=== PATIENT | female | born 1930 | race Caucasian/White ===

== ENCOUNTER → 2016-07-29 | Outpatient (CLI) | payer MEDICARE ==
--- NOTE | 2016-07-29 15:57 | NM ---
EXAMINATION TYPE: NM bone scan whole body DATE OF EXAM: 07/29/2016 3:26 PM COMPARISON: Prior exam dated 10 June 2014 and to plain film 27 July 2016 HISTORY: Low back pain, spondylosis without myelopathy Delayed whole-body scanning was performed following the injection of 26.5 mCi Tc 99m MDP. Images acq uired 3 hours post injection. FINDINGS: Bandlike area of increased radio pharmaceutical uptake is noted within the approximate L2 level corre lating to superior endplate fracture on plain film. Uptake at the posterior aspect of L5 to the left of midline is likely degenerative. Multiple focal areas of uptake are present along anterior ribs yee aterally similar to previous exam, some interval abnormalities may be due to an interval injury along the anterior ribs. Bandlike areas of uptake are also present within the T11 C7 thoracic vertebral uche dies similar to prior exam at T7. Uptake within the ankles, feet, knees, wrists, hands, elbows, shoul ders and sternal clavicular joints is likely degenerative. Uptake in the maxilla and mandible likely due to periodontal disease. Again noted is a scoliosis. IMPRESSION: Interval compression fracture superior endplate at L2 is likely osteoporotic. Suspect T11 arthropathy and costovertebral angle on the right. Degenerative changes and interval rib trauma suspected. Addit ional findings above.
== END | disposition home or self-care (01) ==
LOC: RADNMMAIN 11:29
PROVIDERS: ATTEND Physical Medicine & Rehabilitation
DX: M48.56XA Collapsed vertebra, not elsewhere classified, lumbar region, initial encounter for fracture (principal)
CPT/HCPCS: 78306; A9503

== ENCOUNTER → 2016-09-15 | Outpatient (CLI) | payer MEDICARE ==
--- NOTE | 2016-09-15 11:25 | ECHOF ---
Referral Reason:Breast ca C50.411 Z01.818 herceptin MEASUREMENTS -------- HEIGHT: 134.6 cm WEIGHT: 29.0 kg BP: IVSd: 1.5 cm (0.6 - 1.1) LVIDd: 4.0 cm (3.9 - 5.3) LVPWd: 1.1 cm (0.6 - 1.1) IVSs: 1.1 cm LVIDs: 3.5 cm LVPWs: 1.3 cm LAESV Index (A-L): 32.54 ml/m Ao Diam: 3.3 cm (2.0 - 3.7) AV Cusp: 1.6 cm (1.5 - 2.6) LA Diam: 3.7 cm (2.7 - 3.8) MV EXCURSION: 15.315 mm (> 18.000) MV EF SLOPE: 84 mm/s (70 - 150) EPSS: 0.7 cm MV E Scott: 0.51 m/s MV DecT: 194 ms MV A Scott: 0.98 m/s MV E/A Ratio: 0.52 RAP: 5.00 mmHg RVSP: 28.15 mmHg FINDINGS -------- Sinus rhythm. This was a technically adequate study. There is mild concentric left ventricular hypertrophy. Overall left ventricular systolic function is low-normal with, an EF between 50 - 55 %. The right ventricle is normal in size. LA is moderately dilated 34-39 ml/m2 The right atrial size is normal. There is mild aortic valve sclerosis. There is no evidence of aortic regurgitation. Mild mitral annular calcification present. No mitral regurgitation. Mild tricuspid regurgitation present. There is no evidence of pulmonary hypertension. The right ventricular systolic pressure, as measured by Doppler, is 28.15mmHg. There is no pulmonic regurgitation present. The aortic root size is normal. There is no pericardial effusion. CONCLUSIONS -------- 1. There is mild concentric left ventricular hypertrophy. 2. Overall left ventricular systolic function is low-normal with, an EF between 50 - 55 %. 3. LA is moderately dilated 34-39 ml/m2 4. There is mild aortic valve sclerosis. 5. Mild mitral annular calcification present. 6. No mitral regurgitation. 7. Mild tricuspid regurgitation present. 8. There is no evidence of pulmonary hypertension. 9. The right ventricular systolic pressure, as measured by Doppler, is 28.15mmHg. MISSILE TECHNICIAN: Sapphire Wiggins RDCS
== END | disposition home or self-care (01) ==
LOC: RADECHMAIN 08:25
PROVIDERS: ATTEND Internal Medicine Hematology & Oncology
DX: C50.919 Malignant neoplasm of unspecified site of unspecified female breast (principal); I08.3 Combined rheumatic disorders of mitral, aortic and tricuspid valves
CPT/HCPCS: 93306

== ENCOUNTER → 2016-10-28 | Outpatient (CLI) | payer MEDICARE ==
--- NOTE | 2016-10-28 08:06 | CT ---
EXAMINATION TYPE: CT chest wo con DATE OF EXAM: 10/28/2016 COMPARISON: 12/10/2015 HISTORY: SOB, nodule CT DLP: 228.[address] of the chest was performed with lung and mediastinal window settings submitted. The la ck of contrast limits evaluation of the vascular, mediastinal and parenchymal structures including th e upper abdomen. LUNGS: The lungs are clear and free of infiltrate. No atelectasis. Stable calcified nodule left upper lobe image 34. Stable nodule within the lingula measuring 4 mm image 42. No new nodules seen. Parenc hymal scarring within the lingula. No pleural effusion. No CT evidence of interstitial lung disease. MEDIASTINUM/DOUGLAS: Calcified left hilar lymph nodes. Thoracic aorta is of normal caliber with limited evaluation given lack of contrast. The heart is not enlarged. No evidence for mediastinal mass. N o lymph nodes greater than 1cm. UPPER ABDOMEN: No significant abnormality is seen. OTHER: Remote right-sided rib fractures again demonstrated. Sliding type hiatal hernia redemonstrated . IMPRESSION: 1. Evidence of remote granulomatous disease. No suspicious nodules identified.
== END | disposition home or self-care (01) ==
LOC: RADCTMAIN 07:39
PROVIDERS: ATTEND Family Medicine
DX: R91.1 Solitary pulmonary nodule (principal)
CPT/HCPCS: 71250

== ENCOUNTER → 2016-11-18 | Outpatient (CLI) | payer MEDICARE ==
--- NOTE | 2016-11-18 10:18 | MM ---
Reason for exam: history of breast cancer, mastectomy. Last mammogram was performed 1 year ago. History: Patient is postmenopausal and is nulliparous. Mastectomy of the right breast, December 18, 2015. Taking other hormone. Physical Findings: Nurse did not find any significant physical abnormalities on exam. MG 3D Diag Mammo W/Cad LT CC, MLO, and CV view(s) were taken of the left breast. Prior study comparison: November 05, 2015, bilateral MG 3d diag mammo w/cad EVAN. May 20, 2010, bilateral digital screening mammogram. The breast tissue is heterogeneously dense. This may lower the sensitivity of mammography. Finding: There are typically benign round, diffuse/scattered and grouped calcifications in the left breast. There is no discrete abnormality. These results were verbally communicated with the patient and result sheet given to the patient on 11/18/16. ASSESSMENT: Benign, BI-RAD 2 RECOMMENDATION: Follow-up diagnostic mammogram of the left breast in 1 year.
== END | disposition home or self-care (01) ==
LOC: RADMAMWWP 07:36
PROVIDERS: ATTEND Surgery
DX: Z85.3 Personal history of malignant neoplasm of breast (principal); Z90.11 Acquired absence of right breast and nipple
CPT/HCPCS: G0206; G0279

== ENCOUNTER → 2017-04-13 | Outpatient (CLI) | payer MEDICARE ==
--- NOTE | 2017-04-13 14:38 | MR ---
EXAMINATION TYPE: MR brain wo/w con DATE OF EXAM: 04/13/2017 COMPARISON: There are no prior MRIs of the brain. No recent CT of the brain is available at this loca tion.. Comparison is made with 08/30/2010 CT brain HISTORY: Breast CA, BELTRÁN, DIZZY CONTRAST: Performed utilizing 7 mL intravenous Gadavist gadolinium contrast. TECHNIQUE: Multiplanar, multiecho imaging on a 3.0 Aleah magnet is performed through the brain. Stud y is performed within 24 hours of arrival to the hospital. The craniovertebral junction is normal. The pituitary is normal. Diffusion-weighted imaging is performed. No abnormal hyperintensity is present to suggest an acute i ntracranial infarct or acute ischemic change. There are scattered punctate areas of hyperintensity on T2 and Inversion Recovery weighted sequences which are non-specific but can be related to microvascular ischemic changes. This includes periventri cular white matter as well as the proximal cerebral peduncles. There are normal vascular flow voids p resent. Posterior communicating arteries are patent. Anterior communicating artery is patent. Ventricles and sulci are prominent for the patient age. No abnormal intracranial enhancement is evident post contrast. There is hyperintense signal on T2 and inversion recovery sequences in the frontal calvarium superior to the frontal sinuses. This may be enhancing and metastatic calvarial process is not excluded. CT c ould be performed for better evaluation of the osseous structures at this location. IMPRESSIONS: 1. Atrophy with chronic appearing white matter ischemic type changes.. 2. No suspicious changes to suggest intracranial metastatic disease. 3. There is hyperintense signal on T2 and inversion recovery sequences in the frontal calvarium super ior to the frontal sinuses. This may be enhancing and metastatic calvarial process is not excluded. C T could be performed for better evaluation of the osseous structures at this location.
== END | disposition home or self-care (01) ==
LOC: RADMRIMAIN 13:07
PROVIDERS: ATTEND Internal Medicine Hematology & Oncology
DX: G31.9 Degenerative disease of nervous system, unspecified (principal); I67.82 Cerebral ischemia; C50.411 Malignant neoplasm of upper-outer quadrant of right female breast; R90.82 White matter disease, unspecified
CPT/HCPCS: 70553; A9581

== ENCOUNTER → 2017-11-20 | Outpatient (CLI) | payer MEDICARE ==
--- NOTE | 2017-11-20 10:34 | MM ---
Reason for exam: additional evaluation requested from prior study. Last mammogram was performed 1 year ago. History: Patient is postmenopausal, has history of breast cancer at age 84, and is nulliparous. Mastectomy of the right breast, December 18, 2015. Took antineoplastic beginning at age 84. Taking other hormone. Physical Findings: Nurse did not find any significant physical abnormalities on exam. MG 3D Diag Mammo W/Cad LT CC, MLO, ML, ML with magnification, and CC with magnification view(s) were taken of the left breast. Prior study comparison: November 18, 2016, left breast MG 3d diag mammo w/cad LT. November 05, 2015, bilateral MG 3d diag mammo w/cad EVAN. The breast tissue is heterogeneously dense. This may lower the sensitivity of mammography. Finding: There are changing grouped/clustered calcifications in the 6 o'clock middle position of the left breast 7cm from the nipple. New finding since November 18, 2016. These results were verbally communicated with the patient and result sheet given to the patient on 11/20/17. ASSESSMENT: Suspicious, BI-RAD 4 RECOMMENDATION: Stereotactic core biopsy of the left breast. Called Dr. Mcconnell with mammographic findings and has scheduled an appointment for the patient for 11/23/17 at 8:[address] Ferrera. PRELIMINARY REPORT CALLED AND FAXED TO DR. FERRERA ON 11/20/17.
== END | disposition home or self-care (01) ==
LOC: RADMAMWWP 09:03
PROVIDERS: ATTEND Internal Medicine Hematology & Oncology
DX: Z08 Encounter for follow-up examination after completed treatment for malignant neoplasm (principal); Z85.3 Personal history of malignant neoplasm of breast
CPT/HCPCS: 77065; G0279; 77061

== ENCOUNTER → 2017-12-22 | Day surgery (SDC) | payer MEDICARE ==
[2017-12-22 07:21] VITALS: RESP 16; BMI 27.4
[2017-12-22 08:44] VITALS: BP 152/84; PULSE 74; TEMP 98.8
--- NOTE | 2017-12-22 09:53 | MM ---
EXAMINATION TYPE: MG stereo VAD BX LT DATE OF EXAM: 12/22/2017 COMPARISON: Exams dating back to 11/18/2016 CLINICAL HISTORY: Left breast calcifications that are indeterminate and for which stereotactic guided biopsy was recommended. TECHNIQUE: Stereotactic guided core biopsy of left breast. FINDINGS: The procedure of stereotactic guided core biopsy was explained to the patient. Benefits, alternatives, and risks were discussed. An informed consent was then obtained. Preprocedural timeout was performed. The shortness pathway for biopsy was chosen. Shortness pathway was craniocaudal from below approach. 10 cc of lidocaine without epinephrine was utilized to anesthetize the skin surface and subcutaneous soft tissues. The needle was advanced to the appropriate depth and prefire images were obtained demonstrating appropriate localization of a 3 mm group of calcifications in the lower inner quadrant of the left breast. 10 cc's of lidocaine with epinephrine was utilized to anesthetize the subcutaneous tissues at the site of biopsy after postfire. A vacuum assisted biopsy gun was then used to obtain 9 core samples. The patient tolerated the procedure well without any immediate complication. The patient was kept in the radiology department for short stay after the procedure and then discharged home in stable condition. Targeted calcifications are identified in specimen mammogram. Post biopsy mammogram shows the clip to appear in satisfactory position relative to the targeted area of concern on the preprocedure images. IMPRESSION: SUCCESSFUL, UNCOMPLICATED STEREOTACTIC GUIDED CORE BIOPSY OF A 3 MM GROUP OF CALCIFICATIONS IN THE LOWER INNER QUADRANT OF THE LEFT BREAST, FULL PATHOLOGY RESULTS TO FOLLOW. Low index of suspicion at the time of biopsy (BI-RADS 4A). Pathology Results: Benign CORE BIOPSY, LEFT BREAST: Fibroadenoma demonstrating dystropic calcification. Recommendation Follow up mammogram of the left breast in 6 months. ANNE
== END ==
LOC: RADMAMWWP 06:55
PROVIDERS: ATTEND Surgery
DX: R92.1 Mammographic calcification found on diagnostic imaging of breast (principal); R92.8 Other abnormal and inconclusive findings on diagnostic imaging of breast
CPT/HCPCS: 88305; 19081; A4648; J2001

== ENCOUNTER → 2018-04-30 | Outpatient (CLI) | payer MEDICARE ==
--- NOTE | 2018-05-01 13:36 | BD ---
EXAMINATION TYPE: Axial Bone Density DATE OF EXAM: 04/30/2018 COMPARISON: 02.02.2016 CLINICAL HISTORY: 87 YR OLD FEMALE.....ICD-10 CODE: M85.8 OSTEOPENIA, C50.411 BREAST CANCER Height: 62.8 Weight: 166 FRAX RISK QUESTIONS: History of Fracture in Adulthood: YES, MANY RISK FACTORS HISTORY OF: HX OF RT SHOULDER, ANKLE FRACTURE >50 YRS OLD, RIBS, WRIST, FEET History of Wrist Fracture: RT WRIST AND ELBOW > 52 YRS OLD, HX OF LT WRIST FX IN 1969 Surgery to Spine LOW BACK, LAMINECTOMY, 1985 Family History of Osteoporosis: YES, HER MOTHER Postmenopausal woman: YES AT ABOUT 52 YRS OLD Lost more than 2 inches in height since high school: YES Frequent falls: ELDERLY, MANY FRACTURES MEDICATIONS: Prednisone or other steroids: INHALERS FOR ASTHMA, CLAIRTIN, How Long: ON AND OFF FOR YRS Osteoporosis Medications: FOSAMAX, IN PAST..STOPPED 1 YR AGO Additional Medications: ROCEPHIN FOR BREAST CA , CALCIUM WITH D, BP MEDS, METFORMIN, STATIN FOR CHO LESTEROL, Additional History: HX OF BREAST CANCER, RT BREAST, HYPERTENSION, DIABETIC, EXAM MEASUREMENTS: Bone mineral densitometry was performed using the [employer] System. SPINE NOT SCANNED.......LAMINECTOMY LUMBAR SPINE Bone mineral density about the R hip (g/cm2): 0.832 Bone mineral density about the L hip (g/cm2): 0.831 T Score values are as follows: -----R Neck: -0.9 -----L Neck: -1.6 -----R Total: -1.4 -----L Total: -1.4 Bone mineral density has: Increased 2.2% since study of: 02.02.2016 FOREARM NOT SCANNED.....HX OF FRACTURES TO BOTH WRISTS FRAX%s: THERE IS A 19.5% CHANCE FOR A MAJOR OSTEOPOROTIC FX AND A 4.8% FOR HIP FX....PROBABILITY O F FX IN 10 YRS TIME IMPRESSION: Osteopenia (T Score between -2.5 and -1). There is slightly increased risk of fracture and the patient may be considered for treatment. Re-Screen 2-5 years. NOTE: T-SCORE=SD OF THE YOUNG ADULT MEAN.
== END | disposition home or self-care (01) ==
LOC: RADBDWWP 16:07
PROVIDERS: ATTEND Internal Medicine Hematology & Oncology
DX: C50.911 Malignant neoplasm of unspecified site of right female breast (principal); M85.80 Other specified disorders of bone density and structure, unspecified site
CPT/HCPCS: 77080

== ENCOUNTER → 2018-05-31 | Outpatient (CLI) | payer MEDICARE ==
--- NOTE | 2018-05-31 09:51 | MM ---
Reason for exam: follow-up at short interval from prior study. Last mammogram was performed 6 months ago. History: Patient is postmenopausal, has history of breast cancer at age 84, and is nulliparous. Benign MG stereo VAD BX LT of the left breast, December 22, 2017. Mastectomy of the right breast, December 18, 2015. Took antineoplastic beginning at age 84. Taking other hormone. Physical Findings: Nurse did not find any significant physical abnormalities on exam. MG 3D Diag Mammo W/Cad LT CC, MLO, and ML view(s) were taken of the left breast. Prior study comparison: November 20, 2017, left breast MG 3d diag mammo w/cad LT. November 18, 2016, left breast MG 3d diag mammo w/cad LT. The breast tissue is heterogeneously dense. This may lower the sensitivity of mammography. Benign calcifications in the left breast. Left biopsy marker noted. These results were verbally communicated with the patient and result sheet given to the patient on 05/31/18. ASSESSMENT: Benign, BI-RAD 2 RECOMMENDATION: Routine screening mammogram of the left breast in 6 months. Back on schedule for November 2018.
== END | disposition home or self-care (01) ==
LOC: RADMAMWWP 08:45
PROVIDERS: ATTEND Internal Medicine Hematology & Oncology
DX: Z08 Encounter for follow-up examination after completed treatment for malignant neoplasm (principal); Z85.3 Personal history of malignant neoplasm of breast
CPT/HCPCS: 77065; G0279; 77061

== ENCOUNTER → 2019-01-30 | Outpatient (CLI) | payer MEDICARE ==
[2019-01-30 12:19] LABS: Anion Gap 8.3 mmol/L (4.00-12.00); Carbon Dioxide 27.7 mmol/L (21.6-31.8); Potassium 4.2 mmol/L (3.5-5.5)
== END | disposition home or self-care (01) ==
LOC: LABWHC1 06:33
PROVIDERS: ATTEND Otolaryngology
DX: Z01.818 Encounter for other preprocedural examination (principal); Z01.812 Encounter for preprocedural laboratory examination; I10 Essential (primary) hypertension; E11.9 Type 2 diabetes mellitus without complications
CPT/HCPCS: 36415; 80051; 93005

== ENCOUNTER → 2019-05-20 | Outpatient (CLI) | payer MEDICARE ==
[2019-05-20 08:55] LABS: Basophils % (A) 1 %; Eosinophils # (A) 0.3 k/uL (0-0.7); Eosinophils % (A) 6 %; HCT 46.1 % (34.0-46.0); HGB 15.2 gm/dL (11.4-16.0); Lymphocytes # (A) 1.7 k/uL (1.0-4.8); Lymphocytes % (A) 30 %; MCH 31.1 pg (25.0-35.0); MCV 94.1 fL (80.0-100.0); Mean Platelet Volume 7.2; Monocytes # (A) 0.3 k/uL (0-1.0); Monocytes % (A) 5 %; Neutrophils # (A) 3.1 k/uL (1.3-7.7); Neutrophils % (A) 56 %; Platelet Count 250 k/uL (150-450); RDW 12.7 % (11.5-15.5); WBC 5.5 k/uL (3.8-10.6)
== END | disposition home or self-care (01) ==
LOC: LABWHC1 07:45
PROVIDERS: ATTEND Otolaryngology
DX: R53.83 Other fatigue (principal); R43.0 Anosmia
CPT/HCPCS: 36415; 82607; 84443; 85025; 86780

== ENCOUNTER → 2019-06-03 | Outpatient (CLI) | payer MEDICARE ==
--- NOTE | 2019-06-03 08:32 | MM ---
Reason for exam: additional evaluation requested from prior study. Last mammogram was performed 1 year ago. History: Patient is postmenopausal, has history of breast cancer at age 84, and is nulliparous. Benign MG stereo VAD BX LT of the left breast, December 22, 2017. Mastectomy of the right breast, December 18, 2015. Took antineoplastic beginning at age 84. Taking other hormone. Physical Findings: Nurse did not find any significant physical abnormalities on exam. MG 3D Diag Mammo W/Cad LT CC and MLO view(s) were taken of the left breast. Prior study comparison: May 31, 2018, left breast MG 3d diag mammo w/cad LT. November 20, 2017, left breast MG 3d diag mammo w/cad LT. The breast tissue is heterogeneously dense. This may lower the sensitivity of mammography. Benign appearing calcifications in the left breast. No suspicious abnormality. These results were verbally communicated with the patient and result sheet given to the patient on 06/03/19. ASSESSMENT: Benign, BI-RAD 2 RECOMMENDATION: Follow-up diagnostic mammogram of the left breast in 1 year.
== END | disposition home or self-care (01) ==
LOC: RADMAMWWP 07:30
PROVIDERS: ATTEND Internal Medicine Hematology & Oncology
DX: Z08 Encounter for follow-up examination after completed treatment for malignant neoplasm (principal); Z85.3 Personal history of malignant neoplasm of breast
CPT/HCPCS: 77065; G0279; 77061

== ENCOUNTER → 2019-07-09 | Outpatient (CLI) | payer MEDICARE ==
[2019-07-09 18:15] LABS: Dermato. farinae IgE <0.10 kU/L
[2019-07-09 18:16] LABS: Cat Epith & Dander IgE 0.15 kU/L; Cladosporian herbarum IgE <0.10 kU/L; Cockroach IgE <0.10 kU/L; Dog Dander IgE <0.10 kU/L
[2019-07-09 18:17] LABS: Alternaria alternata IgE <0.10 kU/L; Aspergillus fumagatus IgE <0.10 kU/L; Birch IgE <0.10 kU/L; Elm IgE <0.10 kU/L; Maple (Box Elder) IgE <0.10 kU/L; Oak IgE <0.10 kU/L; Ragweed,Common IgE <0.10 kU/L
[2019-07-09 18:18] LABS: Red Top (Bentgrass) IgE <0.10 kU/L
== END | disposition home or self-care (01) ==
LOC: LABWHC1 08:52
PROVIDERS: ATTEND Internal Medicine Critical Care Medicine
DX: T78.40XA Allergy, unspecified, initial encounter (principal)
CPT/HCPCS: 36415; 82785; 86003

== ENCOUNTER → 2019-08-22 | Outpatient (CLI) | payer MEDICARE ==
--- NOTE | 2019-08-22 09:18 | CT ---
EXAMINATION TYPE: CT brain w con DATE OF EXAM: 08/22/2019 COMPARISON: 08/30/2010 INDICATION: dizziness, history of breast CA DLP: 822.6 mGycm, Automated exposure control for dose reduction was used. CONTRAST: None CT of the brain is performed utilizing 3 mm thick sections through the posterior fossa and 3 mm thick sections through the remaining calvarium. Study is performed within 24 hours of arrival to the hosp [facility]. No abnormal hyperdensity is present to suggest an acute intracranial hemorrhage. No mass lesion is evident. No areas of abnormal enhancement are evident. No acute infarcts are evident. There is some periventricular hypodensity, likely on the basis of chief operator synthesis janette white matter ischemic change. Suspicious vasogenic edema is not identified. Ventricles and sulci are minimally prominent for the patient age. Paranasal sinuses and mastoid air cells within the [id number] are clear. Calvarium appears intact. There is some mild hyperostosis frontalis internus, normal variant. IMPRESSIONS: 1. No suspicious changes to suggest metastatic disease. 2. Mild atrophy with periventricular white matter chronic appearing ischemic type changes. 3. MRI with contrast could be performed if additional workup more subtle metastatic disease would be of benefit.
--- NOTE | 2019-08-22 12:57 | NM ---
EXAMINATION TYPE: NM bone scan whole body DATE OF EXAM: 08/22/2019 COMPARISON: Nuclear medicine whole body scan July 29, 2016. HISTORY: Breast cancer. Delayed whole-body scanning was performed following the injection of 23 mCi Tc 99m MDP. Images acqui red 3 hours post injection. FINDINGS: Underlying scoliosis redemonstrated. Areas of increased radiotracer uptake throughout the thoracic an d lumbar spine redemonstrated less prominent from prior study. Areas of involvement and bilateral RIB S are less conspicuous. No new areas of abnormal radiotracer uptake. Degenerative change of both shou lders and knees again seen. IMPRESSION: Diminished radiotracer uptake overall consistent with positive response to treatment. 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 No distinct new lesions are seen.
== END | disposition home or self-care (01) ==
LOC: RADCTMAIN 07:59
PROVIDERS: ATTEND Psychiatry & Neurology Neurology
DX: G31.9 Degenerative disease of nervous system, unspecified (principal); I67.82 Cerebral ischemia; C79.51 Secondary malignant neoplasm of bone; Z85.3 Personal history of malignant neoplasm of breast
CPT/HCPCS: 82565; 84520; 70460; 78306; 36415; A9503; Q9967

== ENCOUNTER 2019-12-01 15:43 | Emergency (ER) | payer MEDICARE ==
[2019-12-01 15:47] VITALS: TEMP 98.1
[2019-12-01] MEDS ORDERED: HYDROmorphone 0.5 MG/0.5 ML SYRINGE IVP STA (16:19)
--- NOTE | 2019-12-01 16:33 | ED ---
Abdominal Pain HPI - General Chief Complaint: Abdominal Pain Stated Complaint: Abdominal Pain Time Seen by Provider: 12/01/19 15:45 Source: patient, family Mode of arrival: ambulatory - History of Present Illness Initial Comments: Patient is an 89-year-old female with past medical history of diabetes, hypertension, hyperlipidemia presents to emergency room with reported abdominal pain. Patient states that she hurt her back 3 weeks ago and she was placed on [place] as by her primary care physician. States that since she's been taking the medication she's been constipated. Last bowel movement was Monday. She is not taking medications at home for symptoms. Denies urinary retention. No bowel or bladder incontinence. Denies melenic, black tarry or sticky stools. Denies dysuria, hematuria or voiding. Continues to pass gas. No fevers or chills. No nausea or vomiting. Back pain is reproducible upon movement. No saddle anesthesia or bowel or bladder incontinence. No fevers or chills. No other alleviating, precipitating or modifying factors - Related Data Home Medications Medication Instructions Recorded Confirmed Aspirin 1 each PO DAILY 11/24/17 12/22/17 Atorvastatin [Lipitor] 10 mg PO DAILY 11/24/17 12/22/17 Calcium Citrate 1 each PO DAILY 11/24/17 12/22/17 Glucosamine/Chondr Minaya A Sod [Osteo 1 each PO DAILY 11/24/17 12/22/17 Bi-Flex Caplet] Hydrochlorothiazide [Hydrodiuril] 25 mg PO DAILY 11/24/17 12/22/17 metFORMIN HCL [Glucophage] 1 each PO DAILY 11/24/17 12/22/17 Previous Rx's Medication Instructions Recorded Docusate [Colace] 100 mg PO DAILY #30 capsule 12/01/19 Polyethylene Glycol 3350 [Miralax] 17 gm PO DAILY #527 gm 12/01/19 Allergies Allergy/AdvReac Type Severity Reaction Status Date / Time No Known Allergies Allergy Verified 12/01/19 15:47 Review of Systems ROS Statement: Those systems with pertinent positive or pertinent negative responses have been documented in the HPI. ROS Other: All systems not noted in ROS Statement are negative. Past Medical History Past Medical History: Cancer, Diabetes Mellitus, Hyperlipidemia, Hypertension History of Any Multi-Drug Resistant Organisms: None Reported Past Surgical History: Back Surgery, Breast Surgery Additional Past Surgical History / Comment(s): right breast mastectomy 2016 back surgery 30 years ago Past Anesthesia/Blood Transfusion Reactions: No Reported Reaction Past Psychological History: Anxiety Smoking Status: Former smoker Past Alcohol Use History: None Reported Past Drug Use History: None Reported - Past Family History Sister(s) Family Medical History: Chest Pain / Angina, Eye Disorder Father Family Medical History: Cancer Course Vital Signs 12/01/19 15:44 Temperature 98.1 F Pulse Rate 90 Respiratory 18 Rate Blood Pressure 147/83 O2 Sat by Pulse 97 Oximetry Medical Decision Making - Medical Decision Making Upon arrival the patient is placed into room 16. A thorough history and physical exam was performed. Peripheral IV was established. The patient was given 0.5 mg of Dilaudid for her back pain as she does have inability to move around without significant discomfort. Laboratory studies were conducted. Urinalysis is remarkable for small leukocyte esterase with rare bacteria. Patient has no symptoms of urinary tract infection at this time and therefore I will not treat the asymptomatic bacteria. CT of the patient's abdomen and pelvis demonstrates a moderate stool burden. Moderate sigmoid diverticulosis without diverticulitis. Numerous gallstones. No dilated ducts. Small hiatal hernia. Mild subsegmental atelectasis at the bases. CT of the patient's lumbar spine demonstrates compression fractures of L1 and L2. L2 compression fracture is unchanged. L1 fracture appears new. Patient has no signs of saddle anesthesia. I did discuss the diagnosis, differential treatment options. Patient does request to have a bowel movement at home. She is given mag citrate. She is instructed to drink half the bottle if she does not have a bowel movement within 4 hours to drink the other half. I do recommend that she take MiraLAX and Colace daily while taking the pain medication for her back. I do believe she will benefit from other treatment options to include epidural injections therefore to give her follow-up to Dr. Dupree's office. If the patient does not have a bowel movement or she may return to the emergency room. Patient was in agreement treatment plan she was discharged home ambulatory in stable condition - Lab Data Result diagrams: 12/01/19 16:24 12/01/19 16:24 Lab Results 12/01/19 12/01/19 12/01/19 Range/Units 16:24 16:24 16:24 WBC 6.4 (3.8-10.6) k/uL RBC 5.17 (3.80-5.40) m/uL Hgb 15.4 (11.4-16.0) gm/dL Hct 47.2 H (34.0-46.0) % MCV 91.3 (80.0-100.0) fL MCH 29.7 (25.0-35.0) pg MCHC 32.5 (31.0-37.0) g/dL RDW 12.7 (11.5-15.5) % Plt Count 276 (150-450) k/uL Neutrophils % 65 % Lymphocytes % 20 % Monocytes % 6 % Eosinophils % 6 % Basophils % 1 % Neutrophils # 4.2 (1.3-7.7) k/uL Lymphocytes # 1.3 (1.0-4.8) k/uL Monocytes # 0.4 (0-1.0) k/uL Eosinophils # 0.4 (0-0.7) k/uL Basophils # 0.1 (0-0.2) k/uL Sodium 137 (137-145) mmol/L Potassium 3.6 (3.5-5.1) mmol/L Chloride 99 (98-107) mmol/L Carbon Dioxide 28 (22-30) mmol/L Anion Gap 10 mmol/L BUN 18 H (7-17) mg/dL Creatinine 0.89 (0.52-1.04) mg/dL Est GFR (CKD-EPI)AfAm 67 (>60 ml/min/1.73 sqM) Est GFR (CKD-EPI)NonAf 59 (>60 ml/min/1.73 sqM) Glucose 136 H (74-99) mg/dL Plasma Lactic Acid Michael 1.3 (0.7-2.0) mmol/L Calcium 10.2 (8.4-10.2) mg/dL Total Bilirubin 1.1 (0.2-1.3) mg/dL AST 21 (14-36) U/L ALT 12 (4-34) U/L Alkaline Phosphatase 123 (38-126) U/L Total Protein 7.4 (6.3-8.2) g/dL Albumin 4.5 (3.5-5.0) g/dL Lipase 223 (23-300) U/L Urine Color Urine Appearance (Clear) Urine pH (5.0-8.0) Ur Specific [place] (1.001-1.035) Urine Protein (Negative) Urine Glucose (UA) (Negative) Urine Ketones (Negative) Urine Blood (Negative) Urine Nitrite (Negative) Urine Bilirubin (Negative) Urine Urobilinogen (<2.0) mg/dL Ur Leukocyte Esterase (Negative) Urine RBC (0-5) /hpf Urine WBC (0-5) /hpf Ur Squamous Epith Cells (0-4) /hpf Urine Bacteria (None) /hpf Hyaline Casts (0-2) /lpf Urine Mucus (None) /hpf 12/01/19 Range/Units 16:53 WBC (3.8-10.6) k/uL RBC (3.80-5.40) m/uL Hgb (11.4-16.0) gm/dL Hct (34.0-46.0) % MCV (80.0-100.0) fL MCH (25.0-35.0) pg MCHC (31.0-37.0) g/dL RDW (11.5-15.5) % Plt Count (150-450) k/uL Neutrophils % % Lymphocytes % % Monocytes % % Eosinophils % % Basophils % % Neutrophils # (1.3-7.7) k/uL Lymphocytes # (1.0-4.8) k/uL Monocytes # (0-1.0) k/uL Eosinophils # (0-0.7) k/uL Basophils # (0-0.2) k/uL Sodium (137-145) mmol/L Potassium (3.5-5.1) mmol/L Chloride (98-107) mmol/L Carbon Dioxide (22-30) mmol/L Anion Gap mmol/L BUN (7-17) mg/dL Creatinine (0.52-1.04) mg/dL Est GFR (CKD-EPI)AfAm (>60 ml/min/1.73 sqM) Est GFR (CKD-EPI)NonAf (>60 ml/min/1.73 sqM) Glucose (74-99) mg/dL Plasma Lactic Acid Michael (0.7-2.0) mmol/L Calcium (8.4-10.2) mg/dL Total Bilirubin (0.2-1.3) mg/dL AST (14-36) U/L ALT (4-34) U/L Alkaline Phosphatase (38-126) U/L Total Protein (6.3-8.2) g/dL Albumin (3.5-5.0) g/dL Lipase (23-300) U/L Urine Color Yellow Urine Appearance Clear (Clear) Urine pH 8.5 H (5.0-8.0) Ur Specific [place] 1.045 H (1.001-1.035) Urine Protein Negative (Negative) Urine Glucose (UA) Negative (Negative) Urine Ketones Negative (Negative) Urine Blood Negative (Negative) Urine Nitrite Negative (Negative) Urine Bilirubin Negative (Negative) Urine Urobilinogen <2.0 (<2.0) mg/dL Ur Leukocyte Esterase Small H (Negative) Urine RBC 1 (0-5) /hpf Urine WBC 3 (0-5) /hpf Ur Squamous Epith Cells 3 (0-4) /hpf Urine Bacteria Rare H (None) /hpf Hyaline Casts 1 (0-2) /lpf Urine Mucus Rare H (None) /hpf Disposition Clinical Impression: Constipation, Back pain, Compression fracture, Abdominal pain Disposition: HOME SELF-CARE Condition: Stable Instructions (If sedation given, give patient instructions): Constipation (ED), Vertebral Compression Fracture (ED) Additional Instructions: Please drank half the bottle of mag citrate. If after 4 hours you do not have a bowel movement, drink the other half. Take the stool softener daily. Return to the emergency room for any new or worsening symptoms Prescriptions: Docusate [Colace] 100 mg PO DAILY #30 capsule Polyethylene Glycol 3350 [Miralax] 17 gm PO DAILY #527 gm Is patient prescribed a controlled substance at d/c from ED?: No Referrals: Marvin Parikh DO [Primary Care Provider] - 1-2 days Catherine Montgomery DO [Doctor of Osteopathic Medicine] - 1-2 days Time of Disposition: 18:14
[2019-12-01 16:37] LABS: Basophils # (A) 0.1 k/uL (0-0.2); Basophils % (A) 1 %; Eosinophils # (A) 0.4 k/uL (0-0.7); Eosinophils % (A) 6 %; HCT 47.2 % (34.0-46.0); HGB 15.4 gm/dL (11.4-16.0); Lymphocytes # (A) 1.3 k/uL (1.0-4.8); Lymphocytes % (A) 20 %; MCH 29.7 pg (25.0-35.0); MCHC 32.5 g/dL (31.0-37.0); MCV 91.3 fL (80.0-100.0); Mean Platelet Volume 6.8; Monocytes # (A) 0.4 k/uL (0-1.0); Monocytes % (A) 6 %; Neutrophils # (A) 4.2 k/uL (1.3-7.7); Neutrophils % (A) 65 %; Platelet Count 276 k/uL (150-450); RBC 5.17 m/uL (3.80-5.40); RDW 12.7 % (11.5-15.5); WBC 6.4 k/uL (3.8-10.6)
[2019-12-01 16:47] LABS: Albumin 4.5 g/dL (3.5-5.0); Calcium 10.2 mg/dL (8.4-10.2); Potassium 3.6 mmol/L (3.5-5.1); Total Bilirubin 1.1 mg/dL (0.2-1.3); Total Protein 7.4 g/dL (6.3-8.2)
--- NOTE | 2019-12-01 17:25 | CT ---
EXAMINATION TYPE: CT abdomen pelvis w con DATE OF EXAM: 12/01/2019 COMPARISON: None HISTORY: Abdominal pain, back pain and constipation. CT DLP: 1638.7 mGycm Automated exposure control for dose reduction was used. CONTRAST: Performed with IV Contrast, patient injected with 80ml mL of Isovue 300. Images were obtained from the diaphragm to the floor the pelvis with IV contrast. There is mild subsegmental atelectasis at the lung bases. There is no pleural effusion. Heart size is normal. There is no pericardial effusion. There is small hiatal hernia. Stomach has normal size. Jessy er spleen pancreas appear normal. Bile ducts are not dilated. There are multiple cholesterol gallston es. There is no adrenal mass. Kidneys show satisfactory contrast opacification. There is no hydronephrosi s. Delayed images show normal renal excretion. Ureters are not dilated. There is no retroperitoneal a denopathy. Bladder distends smoothly. There is no inguinal hernia. There are multiple sigmoid diverti cula. There is no evidence of diverticulitis. There is small umbilical hernia that contains fat. There is no mesenteric edema. There is no ascites or free air. There is no bowel obstruction. The nikki endix appears normal. There are diverticuli in the descending colon. There is 50% compression deformity of L2 and L1 vertebral bodies that appears old. There is osteopeni a. The bony pelvis appears intact. I see no bony destructive process. IMPRESSION: Moderate sigmoid diverticulosis without diverticulitis. No evidence of appendicitis. Numerous gallstones. No dilated ducts. Small hiatal hernia. Mild subsegmental atelectasis at the lung bases.
--- NOTE | 2019-12-01 17:31 | CT ---
EXAMINATION TYPE: CT lumbar spine w con DATE OF EXAM: 12/01/2019 COMPARISON: None HISTORY: Abdominal pain, back pain and constipation. CT DLP: 1638.7 mGycm Automated exposure control for dose reduction was used. CONTRAST: Performed with IV Contrast, patient injected with 80ml mL of Isovue 300. Images were obtained from the level of T11 to assess to vertebra without contrast. There is depression of the superior endplates of L1-L2. There is some biconcave deformity. There is l oss of height is 50%. There is no significant disc space narrowing. Lumbar vertebra have normal align ment. The posterior elements are intact. There is osteopenia. There is no evidence of lumbar paraspinal mas s. The sacroiliac joints appear intact. There is a mild relative spinal stenosis at L1 to due to some mild posterior endplate displacement into the spinal canal at the compression fracture site. Canal i s narrowed approximately 50%. 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 Mild relative spina l stenosis at L1-2. The L2 compression fracture unchanged compared to chest CT scan 10-28-16. The L1 fr acture is new compared to old exam.
[2019-12-01 17:53] LABS: Appearance,Urine Clear (Clear); Bacteria,Urine Rare /hpf; Bilirubin,Urine Negative (Negative); Blood,Urine Negative (Negative); Color,Urine Yellow; Glucose,Urine (UA) Negative (Negative); Hyaline Casts,Urine 1 /lpf (0-2); Ketones,Urine Negative (Negative); Leukocyte Esterase,Urine Small (Negative); Mucus,Urine Rare /hpf; Nitrite,Urine Negative (Negative); PH, Urine 8.5 (5.0-8.0); Protein,Urine Negative (Negative); RBC,Urine 1 /hpf (0-5); Specific Gravity,Urine 1.045 (1.001-1.035); Squamous Epithelial Cell,Urine 3 /hpf (0-4); Urobilinogen,Urine <2.0 mg/dL (<2.0); WBC,Urine 3 /hpf (0-5)
[2019-12-01] MEDS ORDERED: MAGNESIUM CITRATE 296 ML BOTTLE PO ONE (18:09)
[2019-12-01] MEDS ORDERED: KETOROLAC 30 MG/ML 1 ML VIAL IVP STA (18:11)
[2019-12-01 18:37] VITALS: RESP 20
[2019-12-01 18:38] VITALS: BP 161/84; PULSE 76
== END 2019-12-01 18:39 | disposition home or self-care (01) ==
LOC: EC 15:43
DX: K59.00 Constipation, unspecified (principal); S32.018A Other fracture of first lumbar vertebra, initial encounter for closed fracture; S32.028A Other fracture of second lumbar vertebra, initial encounter for closed fracture; K57.10 Diverticulosis of small intestine without perforation or abscess without bleeding; K80.20 Calculus of gallbladder without cholecystitis without obstruction; K44.9 Diaphragmatic hernia without obstruction or gangrene; E78.5 Hyperlipidemia, unspecified; E11.9 Type 2 diabetes mellitus without complications; I10 Essential (primary) hypertension; Z79.84 Long term (current) use of oral hypoglycemic drugs; Z79.899 Other long term (current) drug therapy; Z85.3 Personal history of malignant neoplasm of breast; Z90.11 Acquired absence of right breast and nipple; Z87.891 Personal history of nicotine dependence; Z80.9 Family history of malignant neoplasm, unspecified
CPT/HCPCS: 36415; 80053; 83605; 83690; 85025; 81001; 72132; 74177; 99284; 96374; 96375; J1885; J1170; Q9967

== ENCOUNTER → 2020-07-31 | Outpatient (CLI) | payer MEDICARE ==
--- NOTE | 2020-08-03 10:07 | MM ---
Reason for exam: additional evaluation requested from prior study. Last mammogram was performed 1 year and 2 months ago. History: Patient is postmenopausal, has history of breast cancer at age 84, and is nulliparous. Benign MG stereo VAD BX LT of the left breast, December 22, 2017. Mastectomy of the right breast, December 18, 2015. Took antineoplastic beginning at age 84. Taking other hormone. Physical Findings: Nurse did not find any significant physical abnormalities on exam. MG 3D Diag Mammo W/Cad LT CC, MLO, LM, and spot compression MLO view(s) were taken of the left breast. Prior study comparison: June 03, 2019, left breast MG 3d diag mammo w/cad LT. May 31, 2018, left breast MG 3d diag mammo w/cad LT. The breast tissue is heterogeneously dense. This may lower the sensitivity of mammography. Previous mammotome biopsy in the left breast. Focal asymmetry left subareolar, changing from prior, compresses normally. No significant new findings when compared with previous films. These results were verbally communicated with the patient and result sheet given to the patient on 07/31/20. ASSESSMENT: Benign, BI-RAD 2 RECOMMENDATION: Routine screening mammogram of the left breast in 1 year.
== END ==
LOC: RADMAMWWP 14:07
PROVIDERS: ATTEND Family Medicine
DX: R92.2 Inconclusive mammogram (principal); Z85.3 Personal history of malignant neoplasm of breast; Z78.0 Asymptomatic menopausal state
CPT/HCPCS: 77065; G0279; 77061

== ENCOUNTER 2020-09-24 18:25 | Observation (INO) | payer MEDICARE ==
[2020-09-24] MEDS ORDERED: IPRATROPIUM-ALBUTEROL 3 ML NEB INHALATION STA (19:05)
[2020-09-24] MEDS ORDERED: methylPREDNISolone SOD SUCCI 125 MG/2 ML VIAL IV STA (19:05)
--- NOTE | 2020-09-24 19:10 | ED ---
General Adult HPI - General Chief complaint: Shortness of Breath Stated complaint: asthma attack Time Seen by Provider: 09/24/20 18:40 Source: patient, RN notes reviewed Mode of arrival: ambulatory Limitations: no limitations - History of Present Illness Initial comments: Patient is a pleasant 89-year-old female presenting to the emergency Department with complaints of shortness of breath. Onset of symptoms was yesterday. Patient does have history of similar symptoms previously associated with asthma. Patient has been coughing. Patient does have sputum however has not looked at the color. No fevers. No chest pain. Patient was tested for coronavirus at [facility] her to arrival with negative results. Patient does have paperwork. No calf pain. No leg swelling. - Related Data Home Medications Medication Instructions Recorded Confirmed Aspirin 1 each PO DAILY 11/24/17 12/22/17 Atorvastatin [Lipitor] 10 mg PO DAILY 11/24/17 12/22/17 Calcium Citrate 1 each PO DAILY 11/24/17 12/22/17 Glucosamine/Chondr Minaya A Sod [Osteo 1 each PO DAILY 11/24/17 12/22/17 Bi-Flex Caplet] hydroCHLOROthiazide [Hydrodiuril] 25 mg PO DAILY 11/24/17 12/22/17 metFORMIN HCL [Glucophage] 1 each PO DAILY 11/24/17 12/22/17 Previous Rx's Medication Instructions Recorded Docusate [Colace] 100 mg PO DAILY #30 capsule 12/01/19 Polyethylene Glycol 3350 [Miralax] 17 gm PO DAILY #527 gm 12/01/19 Allergies Allergy/AdvReac Type Severity Reaction Status Date / Time No Known Allergies Allergy Verified 09/24/20 18:28 Review of Systems ROS Statement: Those systems with pertinent positive or pertinent negative responses have been documented in the HPI. ROS Other: All systems not noted in ROS Statement are negative. Constitutional: Denies: fever, chills Eyes: Denies: eye pain ENT: Denies: ear pain Respiratory: Reports: as per HPI, cough, dyspnea Cardiovascular: Denies: chest pain Endocrine: Denies: fatigue Gastrointestinal: Denies: abdominal pain Genitourinary: Denies: dysuria Musculoskeletal: Denies: back pain Skin: Denies: rash Neurological: Denies: weakness Past Medical History Past Medical History: Cancer, Diabetes Mellitus, Hyperlipidemia, Hypertension History of Any Multi-Drug Resistant Organisms: None Reported Past Surgical History: Back Surgery, Breast Surgery Additional Past Surgical History / Comment(s): right breast mastectomy 2016 back surgery 30 years ago Past Anesthesia/Blood Transfusion Reactions: No Reported Reaction Past Psychological History: Anxiety Smoking Status: Never smoker Past Alcohol Use History: None Reported Past Drug Use History: None Reported - Past Family History Sister(s) Family Medical History: Chest Pain / Angina, Eye Disorder Father Family Medical History: Cancer General Exam Limitations: no limitations General appearance: alert, in no apparent distress Head exam: Present: normocephalic Eye exam: Present: normal appearance Neck exam: Present: normal inspection Respiratory exam: Present: wheezes Cardiovascular Exam: Present: tachycardia, normal heart sounds GI/Abdominal exam: Present: soft. Absent: tenderness Extremities exam: Present: normal inspection. Absent: pedal edema, calf tenderness Neurological exam: Present: alert Psychiatric exam: Present: normal affect, normal mood Skin exam: Present: normal color Course Vital Signs 09/24/20 09/24/20 09/24/20 18:28 19:05 19:18 Temperature 97.8 F Pulse Rate 91 102 H Respiratory 18 22 Rate Blood Pressure 171/116 O2 Sat by Pulse 94 L Oximetry 09/24/20 09/24/20 19:32 19:38 Temperature Pulse Rate 98 104 H Respiratory 25 H Rate Blood Pressure 142/99 O2 Sat by Pulse 95 Oximetry EKG Findings - EKG Comments: EKG Findings:: Sinus tachycardia 104. NC 162. QRS 76. QT 348. QTC 457. Left axis. Normal QRS. Nonspecific ST-T. Medical Decision Making - Medical Decision Making Patient reevaluated and still with wheezing. Heart rate 113 -117. O2 sat 92% on room air. Patient updated on results and plan. Dr. Hernandez has been paged covering for Dr. Garcia, who admits for Dr. Parikh. - Lab Data Result diagrams: 09/24/20 19:09 09/24/20 19:09 Lab Results 09/24/20 09/24/20 09/24/20 Range/Units 19:09 19:09 19:09 WBC 9.0 (3.8-10.6) k/uL RBC 4.99 (3.80-5.40) m/uL Hgb 15.8 (11.4-16.0) gm/dL Hct 45.9 (34.0-46.0) % MCV 92.0 (80.0-100.0) fL MCH 31.7 (25.0-35.0) pg MCHC 34.5 (31.0-37.0) g/dL RDW 12.8 (11.5-15.5) % Plt Count 247 (150-450) k/uL MPV 7.0 Neutrophils % 59 % Lymphocytes % 21 % Monocytes % 5 % Eosinophils % 12 % Basophils % 1 % Neutrophils # 5.3 (1.3-7.7) k/uL Lymphocytes # 1.9 (1.0-4.8) k/uL Monocytes # 0.4 (0-1.0) k/uL Eosinophils # 1.0 H (0-0.7) k/uL Basophils # 0.1 (0-0.2) k/uL PT 10.0 (9.0-12.0) sec INR 0.9 (<1.2) APTT 22.9 (22.0-30.0) sec Sodium 141 (137-145) mmol/L Potassium 4.3 (3.5-5.1) mmol/L Chloride 110 H (98-107) mmol/L Carbon Dioxide 20 L (22-30) mmol/L Anion Gap 11 mmol/L BUN 22 H (7-17) mg/dL Creatinine 0.81 (0.52-1.04) mg/dL Est GFR (CKD-EPI)AfAm 76 (>60 ml/min/1.73 sqM) Est GFR (CKD-EPI)NonAf 66 (>60 ml/min/1.73 sqM) Glucose 145 H (74-99) mg/dL Calcium 9.8 (8.4-10.2) mg/dL Total Bilirubin 0.9 (0.2-1.3) mg/dL AST 27 (14-36) U/L ALT 13 (4-34) U/L Alkaline Phosphatase 86 (38-126) U/L NT-Pro-B Natriuret Pep pg/mL Total Protein 7.8 (6.3-8.2) g/dL Albumin 4.4 (3.5-5.0) g/dL 09/24/20 Range/Units 19:09 WBC (3.8-10.6) k/uL RBC (3.80-5.40) m/uL Hgb (11.4-16.0) gm/dL Hct (34.0-46.0) % MCV (80.0-100.0) fL MCH (25.0-35.0) pg MCHC (31.0-37.0) g/dL RDW (11.5-15.5) % Plt Count (150-450) k/uL MPV Neutrophils % % Lymphocytes % % Monocytes % % Eosinophils % % Basophils % % Neutrophils # (1.3-7.7) k/uL Lymphocytes # (1.0-4.8) k/uL Monocytes # (0-1.0) k/uL Eosinophils # (0-0.7) k/uL Basophils # (0-0.2) k/uL PT (9.0-12.0) sec INR (<1.2) APTT (22.0-30.0) sec Sodium (137-145) mmol/L Potassium (3.5-5.1) mmol/L Chloride (98-107) mmol/L Carbon Dioxide (22-30) mmol/L Anion Gap mmol/L BUN (7-17) mg/dL Creatinine (0.52-1.04) mg/dL Est GFR (CKD-EPI)AfAm (>60 ml/min/1.73 sqM) Est GFR (CKD-EPI)NonAf (>60 ml/min/1.73 sqM) Glucose (74-99) mg/dL Calcium (8.4-10.2) mg/dL Total Bilirubin (0.2-1.3) mg/dL AST (14-36) U/L ALT (4-34) U/L Alkaline Phosphatase (38-126) U/L NT-Pro-B Natriuret Pep 234 pg/mL Total Protein (6.3-8.2) g/dL Albumin (3.5-5.0) g/dL - Radiology Data Radiology results: image reviewed (Chest x-ray does show some increased pulmonary vasculature.) Disposition Clinical Impression: COPD (chronic obstructive pulmonary disease) Disposition: ADMITTED IP TO THIS HOSP Is patient prescribed a controlled substance at d/c from ED?: No Referrals: Marvin Parikh DO [Primary Care Provider] - 1-2 days Decision Time: 21:04
[2020-09-24 19:26] LABS: Albumin 4.4 g/dL (3.5-5.0); Calcium 9.8 mg/dL (8.4-10.2); Total Bilirubin 0.9 mg/dL (0.2-1.3); Total Protein 7.8 g/dL (6.3-8.2)
[2020-09-24 19:27] LABS: Basophils # (A) 0.1 k/uL (0-0.2); Basophils % (A) 1 %; Eosinophils % (A) 12 %; HCT 45.9 % (34.0-46.0); HGB 15.8 gm/dL (11.4-16.0); Lymphocytes # (A) 1.9 k/uL (1.0-4.8); Lymphocytes % (A) 21 %; MCH 31.7 pg (25.0-35.0); MCHC 34.5 g/dL (31.0-37.0); Monocytes # (A) 0.4 k/uL (0-1.0); Monocytes % (A) 5 %; Neutrophils # (A) 5.3 k/uL (1.3-7.7); Neutrophils % (A) 59 %; Platelet Count 247 k/uL (150-450); RBC 4.99 m/uL (3.80-5.40); RDW 12.8 % (11.5-15.5)
[2020-09-24 19:29] LABS: INR 0.9 (<1.2); Partial Thromboplastin Time 22.9 sec (22.0-30.0)
[2020-09-24 19:32] LABS: Potassium 4.3 mmol/L (3.5-5.1)
--- NOTE | 2020-09-24 20:45 | XR ---
EXAMINATION: XR chest 2V DATE AND TIME: 09/24/2020 7:48 PM CLINICAL INDICATION: PHH; difficulty breathing TECHNIQUE: Departmental protocol COMPARISON: 12/03/2015 FINDINGS: There is a fine reticular pattern of increased attenuation throughout the lungs, silhouetting the pul monary vasculature arborization, and region of peripheral septal lines. This radiographic pattern sug gests interstitial phase pulmonary edema, not seen on the prior study. The pleural spaces are negative. The cardiac silhouette is not enlarged. The remainder of the mediastinal silhouette is unremarkable. The skeletal structures and soft tissues are negative for acute findings. Right surgical stacy are noted over the expected position of the right breast, new since the prior study. IMPRESSION: Findings suggest interstitial phase pulmonary edema.
[2020-09-24] MEDS ORDERED: IPRATROPIUM-ALBUTEROL 3 ML NEB INHALATION PRN (21:06)
[2020-09-24] MEDS ORDERED: LEVOFLOXACIN 750MG-D5W PMX 750 MG in DEXTROSE/WATER 1 150ML.BAG IVPB STA (21:09)
[2020-09-25] MEDS: methylPREDNISolone SOD SUCCI 125 MG/2 ML VIAL IV SCH ×2 (01:04→06:02)
[2020-09-25] MEDS: MELATONIN 3 MG TABLET PO SCH ×2 (05:34→23:45)
[2020-09-25] MEDS: IPRATROPIUM-ALBUTEROL 3 ML NEB INHALATION SCH ×4 (07:30→20:49)
[2020-09-25] MEDS: ANASTROZOLE 1 MG TAB PO SCH (09:44)
[2020-09-25] MEDS: hydroCHLOROthiazide 12.5 MG CAP PO SCH (09:44)
[2020-09-25] MEDS: LOSARTAN 25 MG TAB PO SCH (09:45)
[2020-09-25] MEDS: ATORVASTATIN 10 MG TAB PO SCH (09:45)
[2020-09-25] MEDS: metFORMIN 500 MG TAB PO SCH ×2 (09:45→23:45)
[2020-09-25] MEDS ORDERED: guaiFENesin-Coden 100-10MG/5ML 10 ML CUP PO PRN (12:04)
[2020-09-25] MEDS: BUDESONIDE 1 MG/2 ML NEBU INHALATION SCH ×2 (12:25→20:49)
--- NOTE | 2020-09-25 13:02 | P.CNPUL ---
History of Present Illness Consult date: 09/25/20 Requesting physician: Gio Garcia Reason for consult: dyspnea, asthma Chief complaint: Shortness of breath, wheezing History of present illness: This is a very pleasant 89-year-old female patient who follows with Dr. Parikh as her primary care provider. She has a history of diabetes mellitus, hyperlipidemia, hypertension, breast cancer with previous right breast mastectomy in 2016, anxiety. She is a lifelong nonsmoker. She does have a history of mild intermittent chronic bronchial asthma and follows with Dr. Coto in our office for the same. She presented here to the emergency room yesterday with complaints of increasing shortness of breath, chest tightness and wheezing. Chest x-ray revealed some interstitial face pulmonary edema. EKG reveals sinus tachycardia with no significant ST or T wave abnormalities. White count 9.0. Hemoglobin 15.8. INR 0.9. Sodium 141. Potassium 4.3. Creatinine 0.81. Lactic acid 0.8. ProBNP 234. He is seen today in consultation on the regular medical floor. She is currently resting quite comfortably in bed. Awake and alert in no acute distress. Maintaining O2 saturation in the mid 90s on room air. She's afebrile. Slightly tachycardic. Feeling a bit better today compared to yesterday. Not quite back to her baseline. Continues with some occasional wheeze and dry nonproductive cough. Review of Systems REVIEW OF SYSTEMS: CONSTITUTIONAL: Denies any recent significant weight loss or weight gain. EYES: Denies change in vision. EARS, NOSE, MOUTH, THROAT: Denies headaches, denies sore throat. CARDIOVASCULAR: Denies chest pain, palpitations or syncopal episodes. RESPIRATORY: Positive for shortness of breath, cough, congestion no hemoptysis. GASTROINTESTINAL: Denies change in appetite, denies abdominal pain GENITOURINARY: Denies hematuria, denies infections. MUSKULOSKELETAL: Denies pain, denies swelling. INTEGUMENTARY: Denies rash, denies eczema. NEUROLOGICAL: Denies recent memory loss, no recent seizure activity. PSYCHIATRIC: Denies anxiety, denies depression. HEMATOLOGIC/LYMPHATIC: Denies anemia, denies enlarged lymph nodes. Past Medical History Past Medical History: Cancer, Diabetes Mellitus, Hyperlipidemia, Hypertension History of Any Multi-Drug Resistant Organisms: None Reported Past Surgical History: Back Surgery, Breast Surgery Additional Past Surgical History / Comment(s): right breast mastectomy 2016 back surgery 30 years ago Past Anesthesia/Blood Transfusion Reactions: No Reported Reaction Smoking Status: Former smoker Past Alcohol Use History: None Reported Past Drug Use History: None Reported - Past Family History Sister(s) Family Medical History: Chest Pain / Angina, Eye Disorder Father Family Medical History: Cancer Medications and Allergies Home Medications Medication Instructions Recorded Confirmed Type Atorvastatin [Lipitor] 10 mg PO DAILY 11/24/17 09/24/20 History metFORMIN HCL [Glucophage] 1 tab PO BID 11/24/17 09/24/20 History Anastrozole 1 mg PO DAILY 09/24/20 09/24/20 History Losartan Potassium [Cozaar] 25 mg PO DAILY 09/24/20 09/24/20 History hydroCHLOROthiazide [Hydrodiuril] 12.5 mg PO DAILY 09/24/20 09/24/20 History Allergies Allergy/AdvReac Type Severity Reaction Status Date / Time No Known Allergies Allergy Verified 09/24/20 21:31 Physical Exam Vitals: Vital Signs Temp Pulse Pulse Pulse Resp BP BP 09/25/20 11:31 103 H 09/25/20 11:20 102 H 09/25/20 08:00 98.0 F 119 H 18 136/90 09/25/20 07:40 104 H 09/25/20 07:30 104 H 09/25/20 01:09 98.2 F 116 H 18 111/64 09/24/20 22:23 110 H 16 125/94 09/24/20 19:38 104 H 25 H 142/99 09/24/20 19:32 98 09/24/20 19:18 102 H 09/24/20 19:05 22 09/24/20 18:28 97.8 F 91 18 171/116 Pulse Ox 09/25/20 11:31 09/25/20 11:20 09/25/20 08:00 94 L 09/25/20 07:40 09/25/20 07:30 09/25/20 01:09 93 L 09/24/20 22:23 95 09/24/20 19:38 95 09/24/20 19:32 09/24/20 19:18 09/24/20 19:05 09/24/20 18:28 94 L Intake and Output 09/24/20 09/25/20 09/25/20 22:59 06:59 14:59 Other: # Voids 1 Weight 63.503 kg 63.503 kg GENERAL EXAM: Alert, active, very pleasant 89-year-old female patient, on room air, comfortable in no apparent distress. HEAD: Normocephalic. EYES: Normal reaction of pupils, equal size. NOSE: Clear with pink turbinates. THROAT: No erythema or exudates. NECK: No masses, no JVD. CHEST: No chest wall deformity. LUNGS: Equal air entry with faint end expiratory wheeze. CVS: S1 and S2 normal with no audible murmur, regular rhythm. ABDOMEN: No hepatosplenomegaly, normal bowel sounds, no guarding or rigidity. SPINE: No scoliosis or deformity SKIN: No rashes CENTRAL NERVOUS SYSTEM: No focal deficits, tone is normal in all 4 extremities. EXTREMITIES: There is no peripheral edema. No clubbing, no cyanosis. Peripheral pulses are intact. Results - Laboratory Findings CBC and BMP: 09/24/20 19:09 09/24/20 19:09 PT/INR, D-dimer PT 10.0 sec (9.0-12.0) 09/24/20 19:09 INR 0.9 (<1.2) 09/24/20 19:09 Abnormal lab findings: Abnormal Labs 09/24/20 09/24/20 19:09 19:09 Eosinophils # 1.0 H Chloride 110 H Carbon Dioxide 20 L BUN 22 H Glucose 145 H - Diagnostic Findings Chest x-ray: image reviewed Assessment and Plan Assessment: 1 Acute exacerbation of mild intermittent chronic bronchial asthma 2 Lifelong nonsmoker 3 Diabetes mellitus 4 Hypertension 5 Hyperlipidemia 6 History of right breast cancer status post mastectomy in 2016 Plan: The patient was seen and evaluated by Dr. Coto Continue DuoNeb inhalations, Perforomist and Pulmicort inhalations Continue IV Solu-Medrol Mucinex and Robitussin as needed Lovenox for DVT prophylaxis Probable discharge in the a.m. We will continue to follow and make further recommendations based on her clinical status I, the cosigning physician, performed a history & physical examination of the patient. Lungs sounds with faint end expiratory wheeze. Maintaining good O2 saturations in the 90s on room air. I discussed the assessment and plan of care with my nurse practitioner, Angelina Davies. I attest to the above consultation as dictated by her. Time with Patient: Greater than 30
[2020-09-25] MEDS: guaiFENesin 600 MG TABLET.ER PO SCH ×3 (13:53→23:45)
[2020-09-25] MEDS: ENOXAPARIN 40 MG/0.4 ML SYRINGE SQ SCH (13:53)
[2020-09-25] MEDS: methylPREDNISolone SOD SUCCI 40 MG/ML 1 ML VIAL IV SCH ×2 (15:46→23:44)
--- NOTE | 2020-09-25 20:08 | P.HPIM ---
History of Present Illness H&P Date: 09/25/20 Chief Complaint: Shortness of breath History of presenting complaint: This is a pleasant 89[address] Parikh. Chronic stable medical conditions include depression, hypertension, glaucoma. Patient presents with worsening shortness of breath. Spasms of coughing and significant wheezing. Was bringing up significant amount of sputum. Does not remember the color. Denies fever and chills. Decreased appetite. Patient has chronic low back pain from fall and fracture of vertebra. After getting bronchodilators feeling a bit better. Review of systems: GEN.: Tired EYES: None HEENT: None NECK: None RESPIRATORY: As above CARDIOVASCULAR: None GASTROINTESTINAL: None GENITOURINARY: None MUSCULOSKELETAL: Joint pains LYMPHATICS: None HEMATOLOGICAL: None PSYCHIATRY: None NEUROLOGICAL: None Past medical history to include: Hypertension, depression, low back pain from previous vertebral fracture Social history: Lives alone. Does not smoke or drink alcohol Family history: Reviewed, noncontributory to presentation Physical examination: VITAL SIGNS: 97.9, 95, 19, 120/85, 95% on 2 L GENERAL: BMI 24, sitting on bed, not in distress. EYES: Pupils equal. Conjunctiva normal. HEENT: External appearance of nose and ears normal, oral cavity grossly normal. NECK: JVD not raised; masses not palpable. HEART: First and second heart sounds are normal; no edema. LUNGS:[ Respiratory rate increased, some use of accessory muscles; decreased breath sounds wheezing, ABDOMEN: Soft, nontender, liver spleen not palpable, no masses palpable. PSYCH: Alert and oriented x3; mood and affect normal. NEUROLOGICAL: Cranial nerves grossly intact; no facial asymmetry, power and sensation grossly intact. LYMPHATICS: No lymph nodes palpable in the axilla and neck INVESTIGATIONS, reviewed in the clinical context: WBC 9 hemoglobin 15.8 platelets 247 potassium 4.3 creatinine 0.81 proBNP 234 EKG tracing personally reviewed by me-normal sinus rhythm nonspecific ST segment changes Chest x-ray film personally reviewed by me-right basilar infiltrate Assessment and plan: -Right lower lobe pneumonia. Suspect gram-negative organism. Patient on IV Levaquin -Acute COPD exacerbation in a prior smoker DuoNeb, and his steroids, IV steroids, long-acting beta agonist -Essential hypertension Continue with Cozaar -Diabetes type 2 on oral hypoglycemic Continue with Glucophage. Follow Accu-Cheks -CODE STATUS DO NOT RESUSCITATE Care was discussed the patient. Questions answered. Be consulted. Mucinex added. Past Medical History Past Medical History: Cancer, Diabetes Mellitus, Hyperlipidemia, Hypertension History of Any Multi-Drug Resistant Organisms: None Reported Past Surgical History: Back Surgery, Breast Surgery Additional Past Surgical History / Comment(s): right breast mastectomy 2016 back surgery 30 years ago Past Anesthesia/Blood Transfusion Reactions: No Reported Reaction Smoking Status: Former smoker Past Alcohol Use History: None Reported Past Drug Use History: None Reported - Past Family History Sister(s) Family Medical History: Chest Pain / Angina, Eye Disorder Father Family Medical History: Cancer Medications and Allergies Home Medications Medication Instructions Recorded Confirmed Type Atorvastatin [Lipitor] 10 mg PO DAILY 11/24/17 09/24/20 History metFORMIN HCL [Glucophage] 1 tab PO BID 11/24/17 09/24/20 History Anastrozole 1 mg PO DAILY 09/24/20 09/24/20 History Losartan Potassium [Cozaar] 25 mg PO DAILY 09/24/20 09/24/20 History hydroCHLOROthiazide [Hydrodiuril] 12.5 mg PO DAILY 09/24/20 09/24/20 History Allergies Allergy/AdvReac Type Severity Reaction Status Date / Time No Known Allergies Allergy Verified 09/24/20 21:31 Physical Exam Vitals: Vital Signs Temp Pulse Pulse Pulse Resp BP BP 09/25/20 08:00 98.0 F 119 H 18 136/90 09/25/20 07:30 104 H 09/25/20 01:09 98.2 F 116 H 18 111/64 09/24/20 22:23 110 H 16 125/94 09/24/20 19:38 104 H 25 H 142/99 09/24/20 19:32 98 09/24/20 19:18 102 H 09/24/20 19:05 22 09/24/20 18:28 97.8 F 91 18 171/116 Pulse Ox 09/25/20 08:00 94 L 09/25/20 07:30 09/25/20 01:09 93 L 09/24/20 22:23 95 09/24/20 19:38 95 09/24/20 19:32 09/24/20 19:18 09/24/20 19:05 09/24/20 18:28 94 L Intake and Output 09/24/20 09/25/2021 22:59 06:59 14:59 Other: # Voids 1 Weight 63.503 kg 63.503 kg Results CBC & Chem 7: 09/24/20 19:09 09/24/20 19:09 Labs: Abnormal Lab Results - Last 24 Hours (Table) 09/24/20 09/24/20 Range/Units 19:09 19:09 Eosinophils # 1.0 H (0-0.7) k/uL Chloride 110 H (98-107) mmol/L Carbon Dioxide 20 L (22-30) mmol/L BUN 22 H (7-17) mg/dL Glucose 145 H (74-99) mg/dL Thrombosis Risk Factor Assmnt - Choose All That Apply Each Risk Factor Represents 3 Points: Age 75 years or older Other congenital or acquired thrombophilia - If yes, enter type in comment: No Thrombosis Risk Factor Assessment Total Risk Factor Score: 3 Thrombosis Risk Factor Assessment Level: Moderate Risk
[2020-09-25] MEDS: FORMOTEROL FUMARATE 20 MCG/2 ML NEBU INHALATION SCH (20:49)
[2020-09-26 07:26] VITALS: BP 116/76; RESP 16; TEMP 98.2
[2020-09-26] MEDS: methylPREDNISolone SOD SUCCI 40 MG/ML 1 ML VIAL IV SCH (08:21)
[2020-09-26] MEDS: metFORMIN 500 MG TAB PO SCH (08:21)
[2020-09-26] MEDS: LOSARTAN 25 MG TAB PO SCH (08:21)
[2020-09-26] MEDS: guaiFENesin 600 MG TABLET.ER PO SCH (08:21)
[2020-09-26] MEDS: ATORVASTATIN 10 MG TAB PO SCH (08:21)
[2020-09-26] MEDS: ANASTROZOLE 1 MG TAB PO SCH (08:21)
[2020-09-26] MEDS: hydroCHLOROthiazide 12.5 MG CAP PO SCH (08:21)
[2020-09-26] MEDS: ENOXAPARIN 40 MG/0.4 ML SYRINGE SQ SCH ×2 (08:21→08:22)
[2020-09-26] MEDS: FORMOTEROL FUMARATE 20 MCG/2 ML NEBU INHALATION SCH (08:45)
[2020-09-26] MEDS: IPRATROPIUM-ALBUTEROL 3 ML NEB INHALATION SCH (08:45)
[2020-09-26] MEDS: BUDESONIDE 1 MG/2 ML NEBU INHALATION SCH (08:45)
[2020-09-26 09:11] VITALS: PULSE 104
--- NOTE | 2020-09-26 12:46 | P.PN ---
Subjective Progress Note Date: 09/26/20 Principal diagnosis: Acute exacerbation of mild intermittent asthma This is a very pleasant 89-year-old female patient who follows with Dr. Parikh as her primary care provider. She has a history of diabetes mellitus, hyperlipidemia, hypertension, breast cancer with previous right breast mastectomy in 2016, anxiety. She is a lifelong nonsmoker. She does have a history of mild intermittent chronic bronchial asthma and follows with Dr. Coto in our office for the same. She presented here to the emergency room yesterday with complaints of increasing shortness of breath, chest tightness and wheezing. Chest x-ray revealed some interstitial face pulmonary edema. EKG reveals sinus tachycardia with no significant ST or T wave abnormalities. White count 9.0. Hemoglobin 15.8. INR 0.9. Sodium 141. Potassium 4.3. Creatinine 0.81. Lactic acid 0.8. ProBNP 234. He is seen today in consultation on the regular medical floor. She is currently resting quite comfortably in bed. Awake and alert in no acute distress. Maintaining O2 saturation in the mid 90s on room a ir. She's afebrile. Slightly tachycardic. Feeling a bit better today compared to yesterday. Not quite back to her baseline. Continues with some occasional wheeze and dry nonproductive cough. The patient is seen today 09/26/2020 in follow-up on the regular medical floor. She is currently sitting up in a chair at the bedside. Awake and alert in no acute distress. Feeling nearly back to her baseline. No worsening shortness of breath, cough or congestion. Maintaining O2 saturations in the 90s on room air. She's been afebrile. Blood cultures reveal no growth. He remains on DuoNeb inhalations, Pulmicort and Perforomist inhalations, IV Solu-Medrol. Empiric antibiotics in the form of Levaquin. Objective - Vital Signs Vital signs: Vital Signs Temp 98.2 F 09/26/20 07:24 Pulse 104 H 09/26/20 09:10 Resp 16 09/26/20 07:24 BP 116/76 09/26/20 07:24 Pulse Ox 91 L 09/26/20 07:24 Intake & Output 09/25/20 09/26/20 09/26/20 18:59 06:59 18:59 Intake Total 540 Balance 540 Intake: Oral 540 Other: Voiding Method Toilet Toilet # Voids 3 3 - Exam GENERAL EXAM: Alert, active, very pleasant 89-year-old female patient, on room air, comfortable in no apparent distress. HEAD: Normocephalic. EYES: Normal reaction of pupils, equal size. NOSE: Clear with pink turbinates. THROAT: No erythema or exudates. NECK: No masses, no JVD. CHEST: No chest wall deformity. LUNGS: Equal air entry with faint end expiratory wheeze. CVS: S1 and S2 normal with no audible murmur, regular rhythm. ABDOMEN: No hepatosplenomegaly, normal bowel sounds, no guarding or rigidity. SPINE: No scoliosis or deformity SKIN: No rashes CENTRAL NERVOUS SYSTEM: No focal deficits, tone is normal in all 4 extremities. EXTREMITIES: There is no peripheral edema. No clubbing, no cyanosis. Peripheral pulses are intact. - Labs CBC & Chem 7: 09/24/20 19:09 09/24/20 19:09 Labs: Microbiology - Last 24 Hours (Table) 09/24/20 21:50 Blood Culture - Preliminary Blood No Growth after 24 hours 09/24/20 21:45 Blood Culture - Preliminary Blood No Growth after 24 hours Assessment and Plan Assessment: 1 Acute exacerbation of mild intermittent chronic bronchial asthma 2 Lifelong nonsmoker 3 Diabetes mellitus 4 Hypertension 5 Hyperlipidemia 6 History of right breast cancer status post mastectomy in 2016 Plan: The patient was seen and evaluated by Dr. Coto He is stable for discharge from the pulmonary standpoint Co[place] her home pulmonary medications Complete a prednisone taper Follow up in the office in 1-2 weeks' time I, the cosigning physician, performed a history & physical examination of the patient. Lungs sounds with faint end expiratory wheeze. Maintaining good O2 saturations in the 90s on room air. I discussed the assessment and plan of care with my nurse practitioner, Angelina Davies. I attest to the above consultation as dictated by her.
--- NOTE | 2020-09-26 17:53 | P.DS ---
Providers Date of admission: 09/24/20 21:06 Expected date of discharge: 09/26/20 Attending physician: Gio Garcia Consults: 09/24/20 21:12 Consult Physician Urgent Consulting Provider: Justino Coto Consult Reason/Comments: dyspnea Do you want consulting provider notified?: Yes Primary care physician: [facility] Course: Chief Complaint: Shortness of breath History of presenting complaint: This is a pleasant 89[address] Parikh. Chronic stable medical conditions include depression, hypertension, glaucoma. Patient presents with worsening shortness of breath. Spasms of coughing and significant wheezing. Was bringing up significant amount of sputum. Does not remember the color. Denies fever and chills. Decreased appetite. Patient has chronic low back pain from fall and fracture of vertebra. After getting bronchodilators feeling a bit better. Admitted with pneumonia, COPD exacerbation. Placed on Levaquin, bronchodilator steroids. Today: Doing better. Had some shortness of breath this morning. No better now. Asked the patient to stay 1 more day but she is very keen and anxious to go home as nobody stent to take care of cats and she must leave. She does feel significantly better. Consultation: Dr. Dupree from pulmonary Past medical history to include: Hypertension, depression, low back pain from previous vertebral fracture Social history: Lives alone. Does not smoke or drink alcohol Family history: Reviewed, noncontributory to presentation Physical examination: VITAL SIGNS: 98.2, 92, 16, 116/76, 91% on room air GENERAL: Sitting up in a chair, breathing better EYES: Pupils equal. Conjunctiva normal. NECK: JVD not raised; masses not palpable. HEART: First and second heart sounds are normal; no edema. LUNGS: Respiratory rate increased, decreased breath sounds ABDOMEN: Soft, nontender, liver spleen not palpable, no masses palpable. PSYCH: Alert and oriented x3; mood and affect normal. INVESTIGATIONS, reviewed in the clinical context: WBC 9 hemoglobin 15.8 platelets 247 potassium 4.3 creatinine 0.81 proBNP 234 EKG tracing personally reviewed by me-normal sinus rhythm nonspecific ST segment changes Chest x-ray film personally reviewed by me-right basilar infiltrate Assessment and plan: -Right lower lobe pneumonia. Suspect gram-negative organism.-Improving Patient on IV Levaquin-discharge and oral Levaquin -Acute COPD exacerbation in a prior smoker DuoNeb, and inhaled steroids, IV steroids, long-acting beta agonist. Discharged on tapering steroids -Essential hypertension Continue with Cozaar -Diabetes type 2 on oral hypoglycemic Continue with Glucophage. Follow Accu-Cheks -CODE STATUS DO NOT RESUSCITATE Disposition: Home Plan - Discharge Summary Discharge Rx Participant: No New Discharge Prescriptions: New Ipratropium-Albuterol Nebulize [Duoneb 0.5 mg-3 mg/3 ml Soln] 3 ml INHALATION RT-QID #120 ml Levofloxacin [Levaquin] 750 mg PO DAILY 1 Days #3 tab guaiFENesin [Mucinex] 600 mg PO QID #20 tablet.er predniSONE 10 mg PO DAILY #30 tab Continue metFORMIN HCL [Glucophage] 1 tab PO BID Atorvastatin [Lipitor] 10 mg PO DAILY Losartan Potassium [Cozaar] 25 mg PO DAILY hydroCHLOROthiazide [Hydrodiuril] 12.5 mg PO DAILY Anastrozole 1 mg PO DAILY Discharge Medication List Atorvastatin [Lipitor] 10 mg PO DAILY 11/24/17 [History] metFORMIN HCL [Glucophage] 1 tab PO BID 11/24/17 [History] Anastrozole 1 mg PO DAILY 09/24/20 [History] Losartan Potassium [Cozaar] 25 mg PO DAILY 09/24/20 [History] hydroCHLOROthiazide [Hydrodiuril] 12.5 mg PO DAILY 09/24/20 [History] Ipratropium-Albuterol Nebulize [Duoneb 0.5 mg-3 mg/3 ml Soln] 3 ml INHALATION RT-QID #120 ml 09/26/20 [Rx] Levofloxacin [Levaquin] 750 mg PO DAILY 1 Days #3 tab 09/26/20 [Rx] guaiFENesin [Mucinex] 600 mg PO QID #20 tablet.er 09/26/20 [Rx] predniSONE 10 mg PO DAILY #30 tab 09/26/20 [Rx] Follow up Appointment(s)/Referral(s): Justino Coto DO [Doctor of Osteopathic Medicine] - 1 Week Marvin Parikh DO [Primary Care Provider] - 1-2 days Patient Instructions/Handouts: COPD (Chronic Obstructive Pulmonary Disease) (DC), Chronic Lung Disease and Infection Prevention (DC) Discharge Disposition: HOME SELF-CARE
[2020-09-26 18:20] LABS: Hemoglobin A1C 6.5 % (4.0-6.0)
[2020-09-26] MEDS ORDERED: LEVOFLOXACIN 750MG-D5W PMX 750 MG in DEXTROSE/WATER 1 150ML.BAG IVPB SCH (22:00)
== END 2020-09-26 12:37 | disposition home or self-care (01) ==
LOC: EC 18:25 → 4SSUR 21:06
PROVIDERS: ADMIT Hospitalist; ATTEND Hospitalist
DX: J44.0 Chronic obstructive pulmonary disease with (acute) lower respiratory infection (principal); J18.9 Pneumonia, unspecified organism; J44.1 Chronic obstructive pulmonary disease with (acute) exacerbation; J45.21 Mild intermittent asthma with (acute) exacerbation; E11.9 Type 2 diabetes mellitus without complications; J81.1 Chronic pulmonary edema; I10 Essential (primary) hypertension; E78.5 Hyperlipidemia, unspecified; F32.9 Major depressive disorder, single episode, unspecified; G89.29 Other chronic pain; H40.9 Unspecified glaucoma; M54.5 Low back pain; Z79.84 Long term (current) use of oral hypoglycemic drugs; Z79.899 Other long term (current) drug therapy; Z20.822 Contact with and (suspected) exposure to COVID-19; Z90.11 Acquired absence of right breast and nipple; Z87.81 Personal history of (healed) traumatic fracture; Z87.891 Personal history of nicotine dependence; Z85.3 Personal history of malignant neoplasm of breast; Z66 Do not resuscitate
CPT/HCPCS: 96376 ×2; 96366 ×2; 96365; 96375; 99285; 36415; 94640 ×5; 93005; 83880; 80053; 83605; 85025; 85610; 85730; 87040; 83036; 71046; G0378 ×4; J2920 ×2; J2930 ×2; J1650 ×2; S0170 ×2; J1956; 90935

== ENCOUNTER 2020-09-28 13:13 | Inpatient (IN) | payer MEDICARE ==
[~2020-09-28 13:13] MED LIST: AMIODARONE 50 MG/ML 3 ML VIAL IV ONE; DEXTROSE 5% IN WATER 100 ML BAG IV ONE
[2020-09-28] MEDS ORDERED: SODIUM CHLORIDE 0.9% 500 ML 500 ML IV STA (13:36)
[2020-09-28] MEDS ORDERED: ASPIRIN 81 MG PO STA (13:36)
[2020-09-28] MEDS ORDERED: NITROGLYCERIN OINT 1 INCH/GM PACKET TOPICAL STA (13:36)
--- NOTE | 2020-09-28 13:47 | ED ---
General Adult HPI - General Chief complaint: Dizziness Stated complaint: Weakness Time Seen by Provider: 09/28/20 13:20 Source: patient, RN notes reviewed, old records reviewed Mode of arrival: wheelchair Limitations: no limitations - History of Present Illness Initial comments: This is an 89-year-old female presents emergency department with past medical history significant for COPD diabetes high blood pressure high cholesterol. Patient states she was recently in the hospital for COPD exacerbation and went home 2 days ago. Patient states she's back today because yesterday she started feeling really weak had some diaphoretic episodes and just did not feel well at all. Patient denies any chest pain. Patient denies palpitations. Patient denies any recent fever chills or cough. Patient denies any abdominal pain patient denies nausea or vomiting. Patient states she still has some shortness of breath. Patient denies any swelling to the legs or calf tenderness. - Related Data Home Medications Medication Instructions Recorded Confirmed Atorvastatin [Lipitor] 10 mg PO DAILY 11/24/17 09/24/20 metFORMIN HCL [Glucophage] 1 tab PO BID 11/24/17 09/24/20 Anastrozole 1 mg PO DAILY 09/24/20 09/24/20 Losartan Potassium [Cozaar] 25 mg PO DAILY 09/24/20 09/24/20 hydroCHLOROthiazide [Hydrodiuril] 12.5 mg PO DAILY 09/24/20 09/24/20 Previous Rx's Medication Instructions Recorded Ipratropium-Albuterol Nebulize 3 ml INHALATION RT-QID #120 ml 09/26/20 [Duoneb 0.5 mg-3 mg/3 ml Soln] Levofloxacin [Levaquin] 750 mg PO DAILY 1 Days #3 tab 09/26/20 guaiFENesin [Mucinex] 600 mg PO QID #20 tablet.er 09/26/20 predniSONE 10 mg PO DAILY #30 tab 09/26/20 Allergies Allergy/AdvReac Type Severity Reaction Status Date / Time No Known Allergies Allergy Verified 09/28/20 13:20 Review of Systems ROS Statement: Those systems with pertinent positive or pertinent negative responses have been documented in the HPI. ROS Other: All systems not noted in ROS Statement are negative. Past Medical History Past Medical History: Cancer, Diabetes Mellitus, Hyperlipidemia, Hypertension History of Any Multi-Drug Resistant Organisms: None Reported Past Surgical History: Back Surgery, Breast Surgery Additional Past Surgical History / Comment(s): right breast mastectomy 2016 back surgery 30 years ago Past Anesthesia/Blood Transfusion Reactions: No Reported Reaction Past Psychological History: Anxiety Smoking Status: Former smoker Past Alcohol Use History: None Reported Past Drug Use History: None Reported - Past Family History Sister(s) Family Medical History: Chest Pain / Angina, Eye Disorder Father Family Medical History: Cancer General Exam - General Exam Comments Initial Comments: GENERAL: Patient is well-developed and well-nourished. Patient is nontoxic and well- hydrated and is in mild distress. ENT: Neck is soft and supple. No significant lymphadenopathy is noted. Oropharynx is clear. Moist mucous membranes. Neck has full range of motion without eliciting any pain. EYES: The sclera were anicteric and conjunctiva were pink and moist. Extraocular mov ements were intact and pupils were equal round and reactive to light. Eyelids were unremarkable. PULMONARY: Unlabored respirations. Good breath sounds bilaterally. No audible rales rhonchi or wheezing was noted. CARDIOVASCULAR: Patient is tachycardic at 120 beats a minute. ABDOMEN: Soft and nontender with normal bowel sounds. SKIN: Skin is clear with no lesions or rashes and otherwise unremarkable. NEUROLOGIC: Patient is alert and oriented x3. Cranial nerves II through XII are grossly intact. Motor and sensory are also intact. Normal speech, volume and content. Symmetrical smile. MUSCULOSKELETAL: Normal extremities with adequate strength and full range of motion. LYMPHATICS: No significant lymphadenopathy is noted PSYCHIATRIC: Normal psychiatric evaluation. Limitations: no limitations Course Vital Signs 09/28/20 09/28/20 13:14 13:36 Temperature 98.3 F Pulse Rate 123 H 123 H Respiratory 20 20 Rate Blood Pressure 92/59 120/74 O2 Sat by Pulse 95 96 Oximetry Medical Decision Making - Medical Decision Making EKG shows sinus tachycardia at 121 bpm HI interval 240 QRS is 86 QT interval 326 QTC is 462 per patient's EKG shows ST segment elevation in V2 it also shows biphasic T's in V2 V3 V4 V5 and V6. I immediately called Dr. Austin when I got out of the room he responded quickly and stated he will be down to see the patient. I also spoke with because he agreed to admit the patient. Dr. Austin decided to take the patient immediately to cardiac clinical laboratory manager. Heparin was started. Labs were drawn and sent to the lab. - Lab Data Result diagrams: 09/28/20 13:44 Lab Results 09/28/20 Range/Units 13:44 WBC 11.6 H (3.8-10.6) k/uL RBC 5.06 (3.80-5.40) m/uL Hgb 16.1 H (11.4-16.0) gm/dL Hct 46.1 H (34.0-46.0) % MCV 91.2 (80.0-100.0) fL MCH 31.9 (25.0-35.0) pg MCHC 34.9 (31.0-37.0) g/dL RDW 12.9 (11.5-15.5) % Plt Count 262 (150-450) k/uL MPV 7.2 Neutrophils % 73 % Lymphocytes % 15 % Monocytes % 4 % Eosinophils % 7 % Basophils % 1 % Neutrophils # 8.5 H (1.3-7.7) k/uL Lymphocytes # 1.7 (1.0-4.8) k/uL Monocytes # 0.5 (0-1.0) k/uL Eosinophils # 0.8 H (0-0.7) k/uL Basophils # 0.1 (0-0.2) k/uL Critical Care Time Critical Care Time: Yes Total Critical Care Time: 35 Disposition Clinical Impression: STEMI (ST elevation myocardial infarction) Disposition: ADMITTED IP TO THIS HOSP Referrals: Marvin Parikh DO [Primary Care Provider] - 1-2 days Time of Disposition: 13:53
[2020-09-28] MEDS ORDERED: HEPARIN SODIUM 1,000 UN/ML (10ML VL) IV STA (13:48)
[2020-09-28 13:51] LABS: Basophils # (A) 0.1 k/uL (0-0.2); Basophils % (A) 1 %; Eosinophils # (A) 0.8 k/uL (0-0.7); Eosinophils % (A) 7 %; HCT 46.1 % (34.0-46.0); HGB 16.1 gm/dL (11.4-16.0); Lymphocytes # (A) 1.7 k/uL (1.0-4.8); Lymphocytes % (A) 15 %; MCH 31.9 pg (25.0-35.0); MCHC 34.9 g/dL (31.0-37.0); MCV 91.2 fL (80.0-100.0); Mean Platelet Volume 7.2; Monocytes # (A) 0.5 k/uL (0-1.0); Monocytes % (A) 4 %; Neutrophils # (A) 8.5 k/uL (1.3-7.7); Neutrophils % (A) 73 %; Platelet Count 262 k/uL (150-450); RBC 5.06 m/uL (3.80-5.40); RDW 12.9 % (11.5-15.5); WBC 11.6 k/uL (3.8-10.6)
[2020-09-28 14:01] LABS: Albumin 4.3 g/dL (3.5-5.0); Calcium 9.6 mg/dL (8.4-10.2); Magnesium 2.1 mg/dL (1.6-2.3); Potassium 4.5 mmol/L (3.5-5.1); Total Bilirubin 1.4 mg/dL (0.2-1.3); Total Protein 7.3 g/dL (6.3-8.2)
[2020-09-28] MEDS ORDERED: LIDOCAINE 1% INJ 10MG/ML (20 ML MDV) ONE (14:03)
[2020-09-28 14:08] LABS: INR 0.9 (<1.2); Prothrombin Time 9.8 sec (9.0-12.0)
[2020-09-28] MEDS ORDERED: LIDOCAINE 1% INJ 10MG/ML (20 ML MDV) SQ ONE (14:14)
[2020-09-28] MEDS ORDERED: MIDAZOLAM 2 MG/2 ML VIAL IV ONE ×2 (14:14)
--- NOTE | 2020-09-28 14:14 | XR ---
EXAMINATION TYPE: XR chest 1V portable DATE OF EXAM: 09/28/2020 COMPARISON: 09/24/2020 HISTORY: Shortness of breath TECHNIQUE: Single frontal view of the chest is obtained. FINDINGS: Chronic deformity involving the right humeral neck suggestive of previous trauma. Diffuse osteopenia. Bibasilar infiltrate and small effusion. Heart size normal. No pneumothorax. Diffuse oste openia. Calcifications in the 80s Bonifacio hilum suggestive of lymph node calcification. IMPRESSION: 1. Bibasilar infiltrate or atelectasis correlate clinically. Underlying COPD is suspected.
[2020-09-28 14:19] LABS: Partial Thromboplastin Time 21.8 sec (22.0-30.0)
[2020-09-28] MEDS ORDERED: IV FLUID CONTINUATION 1,000 ML IV ONE (14:28)
[2020-09-28] MEDS ORDERED: NOREPINEPHRINE 4 MG in SODIUM CHLORIDE 0.9% 250 ML IV ONE (14:28)
[2020-09-28] MEDS ORDERED: AMIODARONE 360 MG in DEXTROSE 5% IN WATER 200 ML IV ONE ×4 (14:34→14:54)
[2020-09-28] MEDS ORDERED: HEPARIN SOD,PORK IN 0.45% NACL 25,000 UNIT in 0.45% NACL 1 250ML.BAG IV ONE (14:39)
[2020-09-28] MEDS ORDERED: IOPAMIDOL-370 100ML BTL INJ ONE (14:49)
[2020-09-28] MEDS ORDERED: DEXTROSE 5% IN WATER 100 ML with AMIODARONE 150 MG IV ONE (14:49)
[2020-09-28 14:51] LABS: D-Dimer 0.56 mg/L FEU (<0.60)
--- NOTE | 2020-09-28 15:12 | P.HPIM ---
History of Present Illness A 89-year-old the female came in with complaints of lightheadedness and some diaphoresis denied any chest pain denied any palpitations patient had an EKG which showed significant ST elevations in anterolateral leads predominantly in V2 as well as some ST elevation in lead 1. Patient was a valid by cardiology and patient is going for cardiac catheterization. Patient was recently discharged from [facility]. left she was treated for COPD exacerbation and is presently on weaning dose of steroids patient did not appear to have pneumonia at that time patient is presently on levofloxacin which probably she will not need and will not be continued. Review of Systems REVIEW OF SYSTEMS: CONSTITUTIONAL: No fever, no malaise, no fatigue. HEENT: No recent visual problems or hearing problems. Denied any sore throat. CARDIOVASCULAR: No chest pain, orthopnea, PND, no palpitations, no syncope. PULMONARY: No shortness of breath, no cough, no hemoptysis. GASTROINTESTINAL: No diarrhea, no nausea, no vomiting, no abdominal pain. NEUROLOGICAL: No headaches, no weakness, no numbness. HEMATOLOGICAL: Denies any bleeding or petechiae. GENITOURINARY: Denies any burning micturition, frequency, or urgency. MUSCULOSKELETAL/RHEUMATOLOGICAL: Denies any joint pain, swelling, or any muscle pain. ENDOCRINE: Denies any polyuria or polydipsia. The rest of the 14-point review of systems is negative. Past Medical History Past Medical History: Cancer, Diabetes Mellitus, Hyperlipidemia, Hypertension History of Any Multi-Drug Resistant Organisms: None Reported Past Surgical History: Back Surgery, Breast Surgery Additional Past Surgical History / Comment(s): right breast mastectomy 2016 back surgery 30 years ago Past Anesthesia/Blood Transfusion Reactions: No Reported Reaction Past Psychological History: Anxiety Smoking Status: Former smoker Past Alcohol Use History: None Reported Past Drug Use History: None Reported - Past Family History Sister(s) Family Medical History: Chest Pain / Angina, Eye Disorder Father Family Medical History: Cancer Medications and Allergies Home Medications Medication Instructions Recorded Confirmed Type Atorvastatin [Lipitor] 10 mg PO DAILY 11/24/17 09/28/20 History metFORMIN HCL [Glucophage] 500 mg PO BID 11/24/17 09/28/20 History Anastrozole 1 mg PO DAILY 09/24/20 09/28/20 History Losartan Potassium [Cozaar] 25 mg PO DAILY 09/24/20 09/28/20 History hydroCHLOROthiazide [Hydrodiuril] 12.5 mg PO DAILY 09/24/20 09/28/20 History Ipratropium-Albuterol Nebulize 3 ml INHALATION RT-QID #120 ml 09/26/20 09/28/20 Rx [Duoneb 0.5 mg-3 mg/3 ml Soln] Levofloxacin [Levaquin] 750 mg PO DAILY 1 Days #3 tab 09/26/20 09/28/20 Rx guaiFENesin [Mucinex] 600 mg PO QID #20 tablet.er 09/26/20 09/28/20 Rx predniSONE See Taper PO DAILY 09/28/20 09/28/20 History Allergies Allergy/AdvReac Type Severity Reaction Status Date / Time No Known Allergies Allergy Verified 09/28/20 13:20 Physical Exam Vitals: Vital Signs Temp Pulse Resp BP Pulse Ox 09/28/20 13:36 123 H 20 120/74 96 09/28/20 13:14 98.3 F 123 H 20 92/59 95 Intake and Output 09/28/20 09/28/20 09/28/20 06:59 14:59 22:59 Intake Total 217 Balance 217 Intake: IV 217 Other: Weight 65.771 kg PHYSICAL EXAMINATION: GENERAL: The patient is alert and oriented x3, not in any acute distress. Well developed, well nourished. Thin built female HEENT: Pupils are round and equally reacting to light. EOMI. No scleral icterus. No conjunctival pallor. Normocephalic, atraumatic. No pharyngeal erythema. No thyromegaly. CARDIOVASCULAR: S1 and S2 present. No murmurs, rubs, or gallops. PULMONARY: Chest is clear to auscultation, no wheezing or crackles. ABDOMEN: Soft, nontender, nondistended, normoactive bowel sounds. No palpable organomegaly. MUSCULOSKELETAL: No joint swelling or deformity. EXTREMITIES: No cyanosis, clubbing, or pedal edema. NEUROLOGICAL: Gross neurological examination did not reveal any focal deficits. SKIN: No rashes. Results CBC & Chem 7: 09/28/20 13:44 09/28/20 13:44 Labs: Abnormal Lab Results - Last 24 Hours (Table) 09/28/20 09/28/20 09/28/20 Range/Units 13:44 13:44 13:44 WBC 11.6 H (3.8-10.6) k/uL Hgb 16.1 H (11.4-16.0) gm/dL Hct 46.1 H (34.0-46.0) % Neutrophils # 8.5 H (1.3-7.7) k/uL Eosinophils # 0.8 H (0-0.7) k/uL APTT 21.8 L (22.0-30.0) sec Sodium 136 L (137-145) mmol/L Carbon Dioxide 18 L (22-30) mmol/L BUN 44 H (7-17) mg/dL Creatinine 1.12 H (0.52-1.04) mg/dL Glucose 126 H (74-99) mg/dL Total Bilirubin 1.4 H (0.2-1.3) mg/dL Troponin I (0.000-0.034) ng/mL 09/28/20 Range/Units 13:44 WBC (3.8-10.6) k/uL Hgb (11.4-16.0) gm/dL Hct (34.0-46.0) % Neutrophils # (1.3-7.7) k/uL Eosinophils # (0-0.7) k/uL APTT (22.0-30.0) sec Sodium (137-145) mmol/L Carbon Dioxide (22-30) mmol/L BUN (7-17) mg/dL Creatinine (0.52-1.04) mg/dL Glucose (74-99) mg/dL Total Bilirubin (0.2-1.3) mg/dL Troponin I 0.073 H* (0.000-0.034) ng/mL Assessment and Plan Plan: Possible acute non-ST elevation myocardial infarction: Patient the undergo cardiac catheterization. Patient will be started on high-dose statin, patient was started on Dilantin antiplatelet therapy and beta isela. -COPD without any acute exacerbation at this time no evidence of pneumonia patient will be resumed on weaning doses of steroids. Patient had history of her smoking in the past -Mild acute renal failure secondary to acute VA: Patient will be started on IV fluids metformin will be held as patient is going to receive contrast -Type 2 diabetes mellitus: Sliding scale for now hold off on metformin as mentioned above - hyperlipidemia - hypertension -Patient had history of breast surgery in the past possibility of breast cancer as patient is on anastrozole at this time.
--- NOTE | 2020-09-28 15:45 | CONS ---
CONSULTATION This is an 89-year-old lady who lives in [facility]. She was discharged from the hospital on September 26. She was admitted here for exacerbation of COPD. After discharge she felt okay for a few hours, then started feeling weak, diaphoretic, with lack of energy, and came in mainly with complaints of generalized weakness, lack of energy and shortness of breath. EKG revealed significant precordial ST-T changes suggestive of ischemia involving the anterior wall. She is hemodynamically stable but tachycardic at a rate of about 110 beats per minute. She has multiple risk factors in the form of hypertension, diabetes, hyperlipidemia. At the time of my evaluation, she denies chest pain but feels extremely weak and has been having some sweating through the morning. PAST MEDICAL HISTORY: Remarkable for hypertension, diabetes, hyperlipidemia, previous back surgery, breast surgery and mastectomy for cancer; details unclear. She is not a smoker; she quit smoking more than 20 years ago. NO KNOWN DRUG ALLERGIES. MEDICATIONS: Medications at home include Lipitor 10 mg daily, metformin 1 tablet b.i.d., losartan 25 mg daily, hydrochlorothiazide 12.5 mg daily. She takes guaifenesin and also omeprazole. PHYSICAL EXAMINATION: Blood pressure is 120/70. Pulse rate is 110 per minute. HEENT unremarkable. Fundus was not examined by me. Neck is supple. There is no JVD. I do not hear a carotid bruit. Heart exam reveals S1, S2 with some tachycardia; no significant murmurs. Lungs reveal bilateral diminished air entry. Abdomen is soft. Lower extremities reveal diminished pulses. Central nervous system: Grossly no focal deficits. EKG revealed sinus tachycardia with precordial ST and T-wave changes suggestive of ischemia in the anterior wall. LABORATORY DATA: Pending at this time, but previous laboratory data from less than a week ago revealed normal renal function. IMPRESSION: 1. Acute ischemic syndrome involving the anterior wall with EKG changes. 2. Hypertension. 3. Hyperlipidemia. 4. Type 2 diabetes mellitus. 5. History of recent hospital discharge after exacerbation of chronic obstructive pulmonary disease. RECOMMENDATIONS: I am recommending coronary angiography and based on findings, proceed with intervention. The rationale, risks, benefits and options were explained to the patient. She has no family members whom I can talk to, and she has a legal guardian; we will try to communicate with the person. Will proceed with coronary angiography and possible PCI if indicated. The patient understands all details and wishes to proceed with the procedure. MMODL / IJN: [id number] /
[2020-09-28 17:28] LABS: Glucose,Whole Blood 184 mg/dL (75-99)
[2020-09-28] MEDS: IPRATROPIUM-ALBUTEROL 3 ML NEB INHALATION SCH ×2 (17:30→20:29)
[2020-09-28] MEDS: SODIUM CHLORIDE 0.9% 1,000 ML IV SCH (18:19)
[2020-09-28] MEDS ORDERED: HEPARIN SODIUM 1,000 UN/ML (10ML VL) IV PRN (19:37)
[2020-09-28] MEDS ORDERED: HEPARIN SOD,PORK IN 0.45% NACL 25,000 UNIT in 0.45% NACL 1 250ML.BAG IV SCH (19:45)
[2020-09-28] MEDS ORDERED: AMIODARONE 450 MG in DEXTROSE 5% IN WATER 250 ML IV SCH ×2 (20:30)
[2020-09-28 21:15] LABS: Glucose,Whole Blood 182 mg/dL (75-99)
[2020-09-28] MEDS: INSULIN ASPART (NovoLOG) 100 UNIT/ML VIAL SQ SCH (21:17)
[2020-09-29 04:32] LABS: Basophils % (A) 0 %; Eosinophils # (A) 0.8 k/uL (0-0.7); Eosinophils % (A) 9 %; HCT 42.4 % (34.0-46.0); HGB 14.2 gm/dL (11.4-16.0); Lymphocytes # (A) 2.5 k/uL (1.0-4.8); Lymphocytes % (A) 26 %; MCHC 33.4 g/dL (31.0-37.0); MCV 92.7 fL (80.0-100.0); Mean Platelet Volume 7.2; Monocytes # (A) 0.7 k/uL (0-1.0); Monocytes % (A) 7 %; Neutrophils # (A) 5.3 k/uL (1.3-7.7); Neutrophils % (A) 56 %; Platelet Count 213 k/uL (150-450); RBC 4.57 m/uL (3.80-5.40); RDW 13.1 % (11.5-15.5); WBC 9.4 k/uL (3.8-10.6)
[2020-09-29 05:18] LABS: Calcium 8.8 mg/dL (8.4-10.2); Potassium 3.8 mmol/L (3.5-5.1)
[2020-09-29] MEDS: IPRATROPIUM-ALBUTEROL 3 ML NEB INHALATION SCH ×4 (07:08→21:05)
--- NOTE | 2020-09-29 07:11 | ECHOF ---
Referral Reason:CARDIAC FUNCTION MEASUREMENTS -------- HEIGHT: 162.6 cm WEIGHT: 65.8 kg BP: LAESV Index (A-L): 45.50 ml/m FINDINGS -------- Undetermined rhythm. This was a technically adequate study. Limited Study Patient is post cardiac catheterization and cannot be in left lateral position. The left ventricular size is normal. There is mild concentric left ventricular hypertrophy. Overa ll left ventricular systolic function is moderate-severely impaired with, an EF between 30 - 35 %. Possible Takotsubo. Apical anterior LV wall motion is hypokinetic. Apical lateral LV wall motion is hypokinetic. Apical inferior LV wall motion is hypokinetic. Apical septum LV wall motion is hypokinetic. Jewett Hypokinesis. The right ventricle is mildly enlarged. There is no pericardial effusion. CONCLUSIONS -------- 1. There is mild concentric left ventricular hypertrophy. 2. Overall left ventricular systolic function is moderate-severely impaired with, an EF between 30 - 35 %. 3. Possible Takotsubo. 4. Apical anterior LV wall motion is hypokinetic. 5. Apical lateral LV wall motion is hypokinetic. 6. Apical inferior LV wall motion is hypokinetic. 7. Apical septum LV wall motion is hypokinetic. 8. Jewett Hypokinesis. WOOD SHOP TEACHER: Kenya Schrader RDCS
[2020-09-29 07:58] LABS: Glucose,Whole Blood 129 mg/dL (75-99)
[2020-09-29] MEDS: SODIUM CHLORIDE 0.9% 1,000 ML IV SCH (08:01)
[2020-09-29] MEDS: INSULIN ASPART (NovoLOG) 100 UNIT/ML VIAL SQ SCH ×4 (08:01→20:50)
--- NOTE | 2020-09-29 08:21 | P.CNPUL ---
History of Present Illness Consult date: 09/28/20 Chief complaint: Hypotension History of present illness: 89-year-old female patient presented emergency department with lightheadedness and some diaphoresis. No reported chest pain. EKG was abnormal and the patient had some ST segment elevation in the anterolateral liter leads mainly due to some and V1. She is a lifelong nonsmoker. She has history of bronchial asthma, hypertension and hyperlipidemia and diabetes mellitus and previous history of breast cancer with a mastectomy in 2016 for breast cancer. She was hospitalized back in 09/25/2020 for an acute exacerbation of chronic bronchial asthma. The patient was seen by our group treated and she was discharged home. For a cardiac catheterization based on the abnormal EKG findings. Note that his troponin was at 0.07 and the proBNP level was 7420. Cardiac catheterization was completed and it showed no significant coronary occlusion. There was a concern for Takasubo syndrome and the patient had some acute hypokinesis of the anterior wall with possible apical myocardial ballooning. During cardiac catheterization, the patient became hemodynamically unstable and apprehensive. He was given IV fluids. Currently normal saline running at 75 mL an hour. The patient went into atrial fibrillation/flutter and received cardioversion and the Carpet Cutter and placed on amiodarone 1 mg per minute and the patient is currently in the intensive care unit. The patient is currently on room air oxygen. Most recent BP is 150 57, sinus with a heart rate ranging between 78 and 98 beats per minute. Review of Systems CONSTITUTIONAL: No fever, no malaise, no fatigue. HEENT: No recent visual problems or hearing problems. Denied any sore throat. CARDIOVASCULAR: No chest pain, orthopnea, PND, no palpitations, no syncope. PULMONARY: No shortness of breath, no cough, no hemoptysis. GASTROINTESTINAL: No diarrhea, no nausea, no vomiting, no abdominal pain. NEUROLOGICAL: No headaches, no weakness, no numbness. HEMATOLOGICAL: Denies any bleeding or petechiae. GENITOURINARY: Denies any burning micturition, frequency, or urgency. MUSCULOSKELETAL/RHEUMATOLOGICAL: Denies any joint pain, swelling, or any muscle pain. ENDOCRINE: Denies any polyuria or polydipsia. Past Medical History Past Medical History: Cancer (Breast cancer with previous mastectomy on the right), Diabetes Mellitus, Hyperlipidemia, Hypertension History of Any Multi-Drug Resistant Organisms: None Reported Past Surgical History: Back Surgery, Breast Surgery Additional Past Surgical History / Comment(s): right breast mastectomy 2016 back surgery 30 years ago Past Anesthesia/Blood Transfusion Reactions: No Reported Reaction Past Psychological History: Anxiety Smoking Status: Former smoker Past Alcohol Use History: None Reported Past Drug Use History: None Reported - Past Family History Sister(s) Family Medical History: Chest Pain / Angina, Eye Disorder Father Family Medical History: Cancer Medications and Allergies Home Medications Medication Instructions Recorded Confirmed Type Atorvastatin [Lipitor] 10 mg PO DAILY 11/24/17 09/28/20 History metFORMIN HCL [Glucophage] 500 mg PO BID 11/24/17 09/28/20 History Anastrozole 1 mg PO DAILY 09/24/20 09/28/20 History Losartan Potassium [Cozaar] 25 mg PO DAILY 09/24/20 09/28/20 History hydroCHLOROthiazide [Hydrodiuril] 12.5 mg PO DAILY 09/24/20 09/28/20 History Ipratropium-Albuterol Nebulize 3 ml INHALATION RT-QID #120 ml 09/26/20 09/28/20 Rx [Duoneb 0.5 mg-3 mg/3 ml Soln] Levofloxacin [Levaquin] 750 mg PO DAILY 1 Days #3 tab 09/26/20 09/28/20 Rx guaiFENesin [Mucinex] 600 mg PO QID #20 tablet.er 09/26/20 09/28/20 Rx predniSONE See Taper PO DAILY 09/28/20 09/28/20 History Allergies Allergy/AdvReac Type Severity Reaction Status Date / Time No Known Allergies Allergy Verified 09/28/20 13:20 Physical Exam Vitals: Vital Signs Temp Pulse Pulse Resp BP BP Pulse Ox 09/28/20 17:09 98 17 113/57 96 09/28/20 16:13 78 17 114/79 97 09/28/20 15:32 96 16 127/59 95 09/28/20 15:17 96 14 139/59 97 09/28/20 14:03 94 17 131/78 96 09/28/20 13:36 123 H 20 120/74 96 09/28/20 13:14 98.3 F 123 H 20 92/59 95 Intake and Output 09/28/20 09/28/20 09/28/20 06:59 14:59 22:59 Intake Total 225 Balance 225 Intake: IV 225 Other: Weight 65.771 kg GENERAL: The patient is alert and oriented x3, not in any acute distress. Well developed, well nourished. Thin built female Head exam was generally normal. There was no scleral icterus or corneal arcus. Mucous membranes were moist. Neck was supple and without jugular venous distension, thyromegaly, or carotid bruits. Carotids were easily palpable bilaterally. There was no adenopathy. CARDIOVASCULAR: S1 and S2 present. No murmurs, rubs, or gallops. PULMONARY: Chest is clear to auscultation, no wheezing or crackles. ABDOMEN: Soft, nontender, nondistended, normoactive bowel sounds. No palpable organomegaly. MUSCULOSKELETAL: No joint swelling or deformity. EXTREMITIES: No cyanosis, clubbing, or pedal edema. NEUROLOGICAL: Gross neurological examination did not reveal any focal deficits. SKIN: No rashes. Results - Laboratory Findings CBC and BMP: 09/28/20 13:44 09/28/20 13:44 PT/INR, D-dimer PT 9.8 sec (9.0-12.0) 09/28/20 13:44 INR 0.9 (<1.2) 09/28/20 13:44 D-Dimer 0.56 mg/L FEU (<0.60) 09/28/20 13:44 Abnormal lab findings: Abnormal Labs 09/28/20 09/28/20 09/28/20 13:44 13:44 13:44 WBC 11.6 H Hgb 16.1 H Hct 46.1 H Neutrophils # 8.5 H Eosinophils # 0.8 H APTT 21.8 L Sodium 136 L Carbon Dioxide 18 L BUN 44 H Creatinine 1.12 H Glucose 126 H POC Glucose (mg/dL) Total Bilirubin 1.4 H Troponin I 09/28/20 09/28/20 13:44 17:26 WBC Hgb Hct Neutrophils # Eosinophils # APTT Sodium Carbon Dioxide BUN Creatinine Glucose POC Glucose (mg/dL) 184 H Total Bilirubin Troponin I 0.073 H* - Diagnostic Findings Chest x-ray: image reviewed Assessment and Plan Plan: 1 acute non-STEMI with possible Takasubo syndrome, complicated by hypotension. The patient presented with acute EKG changes and please refer to the results of the cardiac catheterization. Possible cardiomyopathy with an elevated proBNP level 2 A. fib/flutter post-cardioversion 3 chronic bronchial asthma with recent hospital physician for an acute asthma exacerbation 4 diabetes mellitus type 2 without complications 5 hypertension 6 hyperlipidemia 7 right-sided breast cancer postmastectomy 2015 8 non-anion gap metabolic acidosis, serum bicarbonate of 18 Plan Continue IV fluids with normal sed rate of 75 mL an hour Echocardiogram to assess LV function Pressors if needed to maintain a mean arterial pressure above 65 Continue amiodarone loading Continue Lipitor Continue the prednisone burst taper that was given to her at a time of discharge from the hospital for asthma exacerbation Heparin subcu for DVT prophylaxis NovoLog sliding scale coverage for blood sugar control We'll continue to follow
--- NOTE | 2020-09-29 08:26 | P.PN ---
Subjective Progress Note Date: 09/29/20 89-year-old female patient presented emergency department with lightheadedness and some diaphoresis. No reported chest pain. EKG was abnormal and the patient had some ST segment elevation in the anterolateral liter leads mainly due to some and V1. She is a lifelong nonsmoker. She has history of bronchial asthma, hypertension and hyperlipidemia and diabetes mellitus and previous history of breast cancer with a mastectomy in 2016 for breast cancer. She was hospitalized back in 09/25/2020 for an acute exacerbation of chronic bronchial asthma. The patient was seen by our group treated and she was discharged home. For a cardiac catheterization based on the abnormal EKG findings. Note that his troponin was at 0.07 and the proBNP level was 7420. Cardiac catheterization was completed and it showed no significant coronary occlusion. There was a concern for Takasubo syndrome and the patient had some acute hypokinesis of the anterior wall with possible apical myocardial ballooning. During cardiac catheterization, the patient became hemodynamically unstable and apprehensive. He was given IV fluids. Currently normal saline running at 75 mL an hour. The patient went into atrial fibrillation/flutter and received cardioversion and the Director Of Income Tax and placed on amiodarone 1 mg per minute and the patient is currently in the intensive care unit. The patient is currently on room air oxygen. Most recent BP is 150 57, sinus with a heart rate ranging between 78 and 98 beats per minute. On today's evaluation of 09/29/2020, the patient is hemodynamically stable. Her night was uneventful. She remained in normal sinus rhythm. She did not require any pressors and blood pressure today is 127/79. Echocardiogram was completed yesterday and the patient's ejection fraction is order of 30-35%. The patient has mild concentric LVH. There is segmental wall motion abnormalities involving the anterior, lateral, inferior and septal robles. Awaiting for the final catheter ports. Based on what we were told from cardiology, the patient did not have any significant CAD. She is free of any chest pain at this point in time. Her blood work is showing no significant abnormalities. Creatinine is at 1.1 and the patient has a hemoglobin of 14.2. D-dimer is low. The patient was on IV heparin and this was discontinued and currently she is on Eliquis regarding the possibility of paroxysmal atrial fibrillation. She is currently on room air oxygen. Objective - Vital Signs Vital signs: Vital Signs Temp 97.7 F 09/29/20 04:00 Pulse 88 09/29/20 07:19 Resp 18 09/29/20 07:19 BP 118/70 09/29/20 07:00 Pulse Ox 93 L 09/29/20 07:00 Intake & Output 09/28/20 09/29/20 09/29/20 18:59 06:59 18:59 Intake Total 325 1106.642 292 Output Total 200 750 400 Balance 125 356.642 -108 Weight 65.771 kg 71 kg Intake: IV 225 995 92 Amiodarone 450 mg In 170 17 Dextrose 5% in Water 250 ml @ 0.5 MG/MIN 16.667 mls/hr IV .Q15H [facility] Rx#: [id number] Sodium Chloride 0.9% 1, 825 75 000 ml @ 75 mls/hr IV . [id number] [facility] Rx#:[id number] Intake, IV Titration 111.642 Amount Heparin Sod,Pork in 0.45% 111.642 NaCl 25,000 unit In 0.45 % NaCl 1 250ml.bag @ 12 UNITS/KG/HR 7.893 mls/hr IV .Q24H [facility] Rx#: [id number] Oral 100 200 Output: Urine 200 750 400 Other: Voiding Method Bedpan Bedpan # Voids 1 - Exam GENERAL: The patient is alert and oriented x3, not in any acute distress. Well developed, well nourished. Thin built female Head exam was generally normal. There was no scleral icterus or corneal arcus. Mucous membranes were moist. Neck was supple and without jugular venous distension, thyromegaly, or carotid bruits. Carotids were easily palpable bilaterally. There was no adenopathy. CARDIOVASCULAR: S1 and S2 present. No murmurs, rubs, or gallops. PULMONARY: Chest is clear to auscultation, no wheezing or crackles. ABDOMEN: Soft, nontender, nondistended, normoactive bowel sounds. No palpable organomegaly. MUSCULOSKELETAL: No joint swelling or deformity. EXTREMITIES: No cyanosis, clubbing, or pedal edema. NEUROLOGICAL: Gross neurological examination did not reveal any focal deficits. SKIN: No rashes. - Labs CBC & Chem 7: 09/29/20 03:19 09/29/20 03:19 Labs: Abnormal Lab Results - Last 24 Hours (Table) 09/28/20 09/28/20 09/28/20 Range/Units 13:44 13:44 13:44 WBC 11.6 H (3.8-10.6) k/uL Hgb 16.1 H (11.4-16.0) gm/dL Hct 46.1 H (34.0-46.0) % Neutrophils # 8.5 H (1.3-7.7) k/uL Eosinophils # 0.8 H (0-0.7) k/uL APTT 21.8 L (22.0-30.0) sec Sodium 136 L (137-145) mmol/L Chloride (98-107) mmol/L Carbon Dioxide 18 L (22-30) mmol/L BUN 44 H (7-17) mg/dL Creatinine 1.12 H (0.52-1.04) mg/dL Glucose 126 H (74-99) mg/dL POC Glucose (mg/dL) (75-99) mg/dL Total Bilirubin 1.4 H (0.2-1.3) mg/dL Troponin I (0.000-0.034) ng/mL 09/28/20 09/28/20 09/28/20 Range/Units 13:44 17:26 19:56 WBC (3.8-10.6) k/uL Hgb (11.4-16.0) gm/dL Hct (34.0-46.0) % Neutrophils # (1.3-7.7) k/uL Eosinophils # (0-0.7) k/uL APTT 66.8 H (22.0-30.0) sec Sodium (137-145) mmol/L Chloride (98-107) mmol/L Carbon Dioxide (22-30) mmol/L BUN (7-17) mg/dL Creatinine (0.52-1.04) mg/dL Glucose (74-99) mg/dL POC Glucose (mg/dL) 184 H (75-99) mg/dL Total Bilirubin (0.2-1.3) mg/dL Troponin I 0.073 H* (0.000-0.034) ng/mL 09/28/20 09/29/20 09/29/20 Range/Units 21:13 03:19 03:19 WBC (3.8-10.6) k/uL Hgb (11.4-16.0) gm/dL Hct (34.0-46.0) % Neutrophils # (1.3-7.7) k/uL Eosinophils # 0.8 H (0-0.7) k/uL APTT (22.0-30.0) sec Sodium (137-145) mmol/L Chloride 108 H (98-107) mmol/L Carbon Dioxide (22-30) mmol/L BUN 33 H (7-17) mg/dL Creatinine 1.16 H (0.52-1.04) mg/dL Glucose 105 H (74-99) mg/dL POC Glucose (mg/dL) 182 H (75-99) mg/dL Total Bilirubin (0.2-1.3) mg/dL Troponin I (0.000-0.034) ng/mL 09/29/20 09/29/20 Range/Units 03:19 07:57 WBC (3.8-10.6) k/uL Hgb (11.4-16.0) gm/dL Hct (34.0-46.0) % Neutrophils # (1.3-7.7) k/uL Eosinophils # (0-0.7) k/uL APTT 80.8 H (22.0-30.0) sec Sodium (137-145) mmol/L Chloride (98-107) mmol/L Carbon Dioxide (22-30) mmol/L BUN (7-17) mg/dL Creatinine (0.52-1.04) mg/dL Glucose (74-99) mg/dL POC Glucose (mg/dL) 129 H (75-99) mg/dL Total Bilirubin (0.2-1.3) mg/dL Troponin I (0.000-0.034) ng/mL Assessment and Plan Plan: 1 acute non-STEMI with possible Takasubo syndrome, complicated by hypotension. The patient presented with acute EKG changes and please refer to the results of the cardiac catheterization. The patient has cardiomyopathy with an ejection fraction of 30-35% along with segmental wall motion abnormalities. She is currently hemodynamically stable, free of any chest pain and the patient is on room air oxygen. 2 A. fib/flutter post-cardioversion, current rhythm is sinus and the patient is on anticoagulation with Eliquis 3 chronic bronchial asthma with recent hospital physician for an acute asthma exacerbation 4 diabetes mellitus type 2 without complications 5 hypertension 6 hyperlipidemia 7 right-sided breast cancer postmastectomy 2015 8 non-anion gap metabolic acidosis, serum bicarbonate of 18 Plan Continue IV fluids at KVO Echocardiogram was noted and the patient has cardiomyopathy Pressors were not used overnight Discontinue amiodarone Stop IV heparin Metoprolol 25 mg by mouth twice a day Continue Lipitor Continue the prednisone burst taper that was given to her at a time of discharge from the hospital for asthma exacerbation Heparin subcu for DVT prophylaxis NovoLog sliding scale coverage for blood sugar control We'll continue to follow
--- NOTE | 2020-09-29 09:11 | PN ---
PROGRESS NOTE This lady presented with acute ST-segment changes in the anterior leads. Cardiac cath revealed noncritical moderate CAD. Echo revealed anteroapical focal hypokinesia, possibility of takotsubo. She also went into atrial flutter with a rapid rate, developed hypotension requiring Levophed. She was shocked in the [employer]. However, she is in sinus rhythm today comfortable. I will discontinue the amiodarone and IV heparin and start her on Eliquis 2.5 mg b.i.d. Continue care for her COPD. Dr. Pompa is also seeing her for exacerbation of COPD. The patient remains hemodynamically stable. Right groin is clean and dry. PHYSICAL EXAMINATION: Vital signs stable. Blood pressure 120/70, pulse rate is about 86, sinus. JVD 1 cm. No carotid bruit. S1, S2 heard normally, short systolic murmur. Lungs reveal diminished air entry. Abdomen is soft. Lower extremities reveal diminished pulses. Right groin is clean and dry. We will start her on the Eliquis 2.5 mg b.i.d., discontinue IV heparin and amiodarone. Check a troponin. Prognosis remains fair. Will move her to telemetry. MMODL / IJN: [id number] /
[2020-09-29] MEDS: ANASTROZOLE 1 MG TAB PO SCH (09:50)
[2020-09-29] MEDS: ATORVASTATIN 80 MG TAB PO SCH (09:51)
[2020-09-29] MEDS: predniSONE 20 MG TAB PO SCH (09:51)
[2020-09-29] MEDS: APIXABAN 2.5 MG TABLET PO SCH ×2 (09:51→20:48)
[2020-09-29] MEDS: METOPROLOL TARTRATE 25 MG TAB PO SCH ×2 (09:51→20:48)
[2020-09-29 11:50] LABS: Glucose,Whole Blood 126 mg/dL (75-99)
--- NOTE | 2020-09-29 16:29 | CC ---
CARDIAC CATHETERIZATION REPORT DATE OF SERVICE: 09/28/2020. PROCEDURE: Left heart catheterization and coronary angiography. PERFORMED BY: Dr. Martina Austin. Moderate conscious sedation time was 26 minutes. Patient was administered Versed. Oxygen saturation, hemodynamics and EKG were monitored closely. CLINICAL INFORMATION: Mrs. Beverley Ruiz came to the hospital with episode of diaphoresis, weakness, lack of energy and was found to have a significantly abnormal EKG with precordial ST changes suggestive of ischemia. She was recently discharged from the hospital after episode of exacerbation of COPD and at that time her EKG was unremarkable. She also had a mild troponin elevation. In view of this, she was advised cardiac catheterization after due discussion regarding risks, benefits, and options. PROCEDURE NOTE: Under local anesthesia and strict aseptic precautions, a 6-Danish introducer was placed in the right femoral artery. Using standard Yudi catheters, I performed coronary angiography and a pigtail catheter was used to check LV pressure but LV gram was not performed. The sheath was taken out and Angio-Seal device used to secure hemostasis. During the procedure, the patient went into atrial flutter with a rapid rate requiring an electrical cardioversion at 50 joules after sedating her with additional Versed. This was necessary because she was quite hypotensive when she went into the atrial flutter in spite of Levophed. CARDIAC CATHETERIZATION FINDINGS: The left ventricular end-diastolic pressure was about 8 mmHg without any gradient across aortic valve. CORONARY ANGIOGRAPHY FINDINGS: RIGHT CORONARY ARTERY: Technically dominant vessel. No significant disease. Bifurcates into a large PDA and PLV. The PLV at its origin has ostial lesion of about a 70% to 75%, but the PDA is free of significant disease. LEFT MAIN CORONARY ARTERY: This is a short patent disease-free vessel that bifurcates into LAD and circumflex. LEFT ANTERIOR DESCENDING CORONARY ARTERY: Good caliber vessel extends along the anterior wall, gives off a diagonal branch that runs along the LAD and several small septal branches. The LAD and diagonal have no more than 40% to 50% narrowing. Multiple areas of narrowing are noted in the diagonal branch. The LAD itself does not have any had critical stenosis. The diagonal, however, has multiple areas of diffuse disease of about 40% to 45%. The LAD itself has minor irregularities but the distal 1/3 of the LAD has diffuse disease. LEFT POSTERIOR CIRCUMFLEX CORONARY ARTERY: Technically a nondominant vessel, gives off a large obtuse marginal runs in the AV groove has minor irregularities, no significant disease. LEFT VENTRICULOGRAM: Left ventriculogram was not performed. FINAL IMPRESSION: This patient has noncritical disease involving the LAD, diagonal and PLV branch of RCA. RCA branch disease is significant at the ostium of 70% or so. LAD and specifically the diagonal has multiple diffuse areas of narrowing of anywhere from 35% to 45%. The circumflex is free of significant disease. Normal filling pressures and no gradient. RECOMMENDATIONS: We will continue medical therapy and perform an echocardiogram to rule out any possibility of an apical ballooning syndrome. Discussed my thoughts in detail with the patient. MMODL / IJN: [id number] /
[2020-09-29 16:44] LABS: Glucose,Whole Blood 197 mg/dL (75-99)
--- NOTE | 2020-09-29 18:04 | P.PN ---
Subjective Patient given with comments of dizziness, patient is found to have ST elevations in V1 and V2 and lead 1. Patient was taken to [facility] and in [facility] patient ended up having an episode of atrial fibrillation and patient was cardioverted. Patient is subsequently underwent cardiac catheterization did show coronary artery disease but not significant enough to do any stenting but patient is found to have decreased ejection fraction of 30-35% with apical ballooning. Patient is diagnosed with takutsubo syndrome. Patient is presently on a [facility] ker[facility] stable when I valid the patient patient is not on oxygen but appears to be requiring oxygen at this time allotted a chest x-ray because of that. Patient the was an amiodarone drip which was discontinued and was started on metoprolol heparin was discontinued and patient was started on metoprolol. Patient is also is started on low-dose of losartan will monitor basic metabolic profile and kid tab function. Constitutional: Denied any fatigue denied any fever. Cardio vascular: denied any chest pain, palpitations Gastrointestinal denied any nausea vomiting Pulmonary: Denied any shortness of breath cough Neurologic denied any new focal deficits All inpatient medications were reviewed and appropriate changes in these medications as dictated in the interval history and assessment and plan. Objective - Vital Signs Vital signs: Vital Signs Temp 97.6 F 09/29/20 16:49 Pulse 92 09/29/20 16:49 Resp 16 09/29/20 16:49 BP 118/67 09/29/20 16:49 Pulse Ox 94 L 09/29/20 16:49 Intake & Output 09/28/20 09/29/20 09/29/20 18:59 06:59 18:59 Intake Total 325 1106.642 292 Output Total 200 750 400 Balance 125 356.642 -108 Weight 65.771 kg 71 kg Intake: IV 225 995 92 Amiodarone 450 mg In 170 17 Dextrose 5% in Water 250 ml @ 0.5 MG/MIN 16.667 mls/hr IV .Q15H [facility] Rx#: [id number] Sodium Chloride 0.9% 1, 825 75 000 ml @ 75 mls/hr IV . [id number] [facility] Rx#:[id number] Intake, IV Titration 111.642 Amount Heparin Sod,Pork in 0.45% 111.642 NaCl 25,000 unit In 0.45 % NaCl 1 250ml.bag @ 12 UNITS/KG/HR 7.893 mls/hr IV .Q24H [facility] Rx#: [id number] Oral 100 200 Output: Urine 200 750 400 Other: Voiding Method Bedpan Bedpan Bedside Commode # Voids 1 1 - Exam PHYSICAL EXAMINATION: GENERAL: The patient is alert and oriented x3, not in any acute distress. Well developed, well nourished. HEENT: Pupils are round and equally reacting to light. EOMI. No scleral icterus. No conjunctival pallor. Normocephalic, atraumatic. No pharyngeal erythema. No thyromegaly. CARDIOVASCULAR: S1 and S2 present. No murmurs, rubs, or gallops. PULMONARY: Chest is clear to auscultation, no wheezing or crackles. ABDOMEN: Soft, nontender, nondistended, normoactive bowel sounds. No palpable organomegaly. MUSCULOSKELETAL: No joint swelling or deformity. EXTREMITIES: No cyanosis, clubbing, or pedal edema. NEUROLOGICAL: Gross neurological examination did not reveal any focal deficits. SKIN: No rashes. - Labs CBC & Chem 7: 09/29/20 03:19 09/29/20 03:19 Labs: Abnormal Lab Results - Last 24 Hours (Table) 09/28/20 09/28/20 09/29/20 Range/Units 19:56 21:13 03:19 Eosinophils # 0.8 H (0-0.7) k/uL APTT 66.8 H (22.0-30.0) sec Chloride (98-107) mmol/L BUN (7-17) mg/dL Creatinine (0.52-1.04) mg/dL Glucose (74-99) mg/dL POC Glucose (mg/dL) 182 H (75-99) mg/dL Troponin I (0.000-0.034) ng/mL 09/29/20 09/29/20 09/29/20 Range/Units 03:19 03:19 07:57 Eosinophils # (0-0.7) k/uL APTT 80.8 H (22.0-30.0) sec Chloride 108 H (98-107) mmol/L BUN 33 H (7-17) mg/dL Creatinine 1.16 H (0.52-1.04) mg/dL Glucose 105 H (74-99) mg/dL POC Glucose (mg/dL) 129 H (75-99) mg/dL Troponin I (0.000-0.034) ng/mL 09/29/20 09/29/20 09/29/20 Range/Units 08:05 11:48 16:41 Eosinophils # (0-0.7) k/uL APTT (22.0-30.0) sec Chloride (98-107) mmol/L BUN (7-17) mg/dL Creatinine (0.52-1.04) mg/dL Glucose (74-99) mg/dL POC Glucose (mg/dL) 126 H 197 H (75-99) mg/dL Troponin I 0.065 H* (0.000-0.034) ng/mL Assessment and Plan Plan: -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 Patient doesn't appear to have myocardial infarction patient only had minimally elevated troponins. Patient was initially thought to have non-ST elevation PA. Patient is presently on losartan. Not on any diuretics patient had decreased EF with systolic dysfunction which is acute EF of around 30-35% patient is presently not in heart failure exacerbation. -New onset atrial fibrillation: Paroxysmal continue with metoprolol and Eliquis -Coronary artery disease -COPD without any acute exacerbation at this time no evidence of pneumonia patient will be resumed on weaning doses of steroids. Patient had history of her smoking in the past -Mild acute renal failure secondary to heart failure -Type 2 diabetes mellitus: Sliding scale for now hold off on metformin - hyperlipidemia - hypertension -Patient had history of breast surgery in the past possibility of breast cancer as patient is on anastrozole at this time.
--- NOTE | 2020-09-29 20:16 | XR ---
EXAMINATION TYPE: XR chest 1V DATE OF EXAM: 09/29/2020 COMPARISON: 09/28/2020. HISTORY: Shortness of breath. TECHNIQUE: Single frontal view of the chest is obtained. FINDINGS: There is increased mild bibasilar streaky opacity. No pleural effusion, or pneumothorax se en. The cardiac silhouette size is within normal limits. No acute osseous abnormality. Chronic jenkins es of the right proximal humerus seen. IMPRESSION: Increased mild bibasilar opacities may represent atelectasis or developing infiltrates. No evidence of pulmonary congestion.
[2020-09-29 20:19] LABS: Glucose,Whole Blood 126 mg/dL (75-99)
[2020-09-29] MEDS ORDERED: LOSARTAN 25 MG TAB PO SCH (21:00)
[2020-09-30 06:25] LABS: Glucose,Whole Blood 121 mg/dL (75-99)
[2020-09-30] MEDS: INSULIN ASPART (NovoLOG) 100 UNIT/ML VIAL SQ SCH (06:28)
[2020-09-30] MEDS: IPRATROPIUM-ALBUTEROL 3 ML NEB INHALATION SCH ×2 (07:33→11:05)
[2020-09-30] MEDS ORDERED: BUDESONIDE 0.5 MG/2 ML NEBU INHALATION SCH (08:00)
[2020-09-30 08:05] LABS: Calcium 9.2 mg/dL (8.4-10.2); Potassium 4.2 mmol/L (3.5-5.1)
[2020-09-30] MEDS: predniSONE 20 MG TAB PO SCH (09:08)
[2020-09-30] MEDS: METOPROLOL TARTRATE 25 MG TAB PO SCH (09:09)
[2020-09-30] MEDS: ATORVASTATIN 80 MG TAB PO SCH (09:09)
[2020-09-30] MEDS: ANASTROZOLE 1 MG TAB PO SCH (09:09)
[2020-09-30] MEDS: APIXABAN 2.5 MG TABLET PO SCH (09:09)
--- NOTE | 2020-09-30 10:32 | P.PN ---
Subjective Progress Note Date: 09/30/20 89-year-old female patient presented emergency department with lightheadedness and some diaphoresis. No reported chest pain. EKG was abnormal and the patient had some ST segment elevation in the anterolateral liter leads mainly due to some and V1. She is a lifelong nonsmoker. She has history of bronchial asthma, hypertension and hyperlipidemia and diabetes mellitus and previous history of breast cancer with a mastectomy in 2016 for breast cancer. She was hospitalized back in 09/25/2020 for an acute exacerbation of chronic bronchial asthma. The patient was seen by our group treated and she was discharged home. For a cardiac catheterization based on the abnormal EKG findings. Note that his troponin was at 0.07 and the proBNP level was 7420. Cardiac catheterization was completed and it showed no significant coronary occlusion. There was a concern for Takasubo syndrome and the patient had some acute hypokinesis of the anterior wall with possible apical myocardial ballooning. During cardiac catheterization, the patient became hemodynamically unstable and apprehensive. He was given IV fluids. Currently normal saline running at 75 mL an hour. The patient went into atrial fibrillation/flutter and received cardioversion and the Typewriter Mechanic and placed on amiodarone 1 mg per minute and the patient is currently in the intensive care unit. The patient is currently on room air oxygen. Most recent BP is 150 57, sinus with a heart rate ranging between 78 and 98 beats per minute. On today's evaluation of 09/29/2020, the patient is hemodynamically stable. Her night was uneventful. She remained in normal sinus rhythm. She did not require any pressors and blood pressure today is 127/79. Echocardiogram was completed yesterday and the patient's ejection fraction is order of 30-35%. The patient has mild concentric LVH. There is segmental wall motion abnormalities involving the anterior, lateral, inferior and septal robles. Awaiting for the final catheter ports. Based on what we were told from cardiology, the patient did not have any significant CAD. She is free of any chest pain at this point in time. Her blood work is showing no significant abnormalities. Creatinine is at 1.1 and the patient has a hemoglobin of 14.2. D-dimer is low. The patient was on IV heparin and this was discontinued and currently she is on Eliquis regarding the possibility of paroxysmal atrial fibrillation. She is currently on room air oxygen. 09/30/2020, seeing the patient for a follow-up. She was transferred out of the intensive care unit yesterday. Note that she was hypotensive post cardiac catheterization and this improved. She has got a myopathy with an ejection fraction of 30-35%. Cardiac catheterization was also completed and the patient was found to have noncritical disease involving LAD, diagonal, PND and gradually of RCA. Multiple narrowing areas of the area LAD was identified in the order of 35-45%. Circumflex was also free of any disease. Left ventricular end- diastolic pressure was essentially within normal limits. The patient is currently. She has been switched to long-term anticoagulation with Eliquis. She is maintaining her on blood pressure. No tachycardia. Blood work is essentially within normal limits. She is on room air oxygen. Her chest x-ray from yesterday showed some atelectatic changes in lung bases bilaterally. No other significant abnormalities have been noted. She is currently prednisone burst taper. This was given to her for recent COPD/asthma exacerbation. Objective - Vital Signs Vital signs: Vital Signs Temp 97.0 F L 09/30/20 09:03 Pulse 86 09/30/20 09:03 Resp 18 09/30/20 09:03 BP 123/77 09/30/20 09:03 Pulse Ox 93 L 09/30/20 09:03 Intake & Output 09/29/20 09/30/20 09/30/20 18:59 06:59 18:59 Intake Total 532 480 Output Total 400 0 Balance 132 0 480 Weight 67.9 kg Intake: IV 92 Amiodarone 450 mg In 17 Dextrose 5% in Water 250 ml @ 0.5 MG/MIN 16.667 mls/hr IV .Q15H ALICE Rx#: [id number] Sodium Chloride 0.9% 1, 75 000 ml @ 75 mls/hr IV . [id number] ALICE Rx#:[id number] Oral 440 480 Output: Urine 400 0 Other: Voiding Method Bedside Commode Bedside Commode # Voids 1 2 - Exam GENERAL: The patient is alert and oriented x3, not in any acute distress. Well developed, well nourished. Thin built female Head exam was generally normal. There was no scleral icterus or corneal arcus. Mucous membranes were moist. Neck was supple and without jugular venous distension, thyromegaly, or carotid bruits. Carotids were easily palpable bilaterally. There was no adenopathy. CARDIOVASCULAR: S1 and S2 present. No murmurs, rubs, or gallops. PULMONARY: Chest is clear to auscultation, no wheezing or crackles. ABDOMEN: Soft, nontender, nondistended, normoactive bowel sounds. No palpable organomegaly. MUSCULOSKELETAL: No joint swelling or deformity. EXTREMITIES: No cyanosis, clubbing, or pedal edema. NEUROLOGICAL: Gross neurological examination did not reveal any focal deficits. SKIN: No rashes. - Labs CBC & Chem 7: 09/29/20 03:19 09/30/20 07:18 Labs: Abnormal Lab Results - Last 24 Hours (Table) 09/29/20 09/29/20 09/29/20 Range/Units 11:48 16:41 20:17 Chloride (98-107) mmol/L BUN (7-17) mg/dL Glucose (74-99) mg/dL POC Glucose (mg/dL) 126 H 197 H 126 H (75-99) mg/dL 09/30/20 09/30/20 Range/Units 06:23 07:18 Chloride 109 H (98-107) mmol/L BUN 23 H (7-17) mg/dL Glucose 120 H (74-99) mg/dL POC Glucose (mg/dL) 121 H (75-99) mg/dL Assessment and Plan Plan: 1 acute non-STEMI with possible Takasubo syndrome, complicated by hypotension. The patient presented with acute EKG changes and please refer to the results of the cardiac catheterization. The patient has cardiomyopathy with an ejection fraction of 30-35% along with segmental wall motion abnormalities. She is currently hemodynamically stable, free of any chest pain and the patient is on room air oxygen. 2 A. fib/flutter post-cardioversion, current rhythm is sinus and the patient is on anticoagulation with Eliquis 3 chronic bronchial asthma with recent hospital physician for an acute asthma exacerbation 4 diabetes mellitus type 2 without complications 5 hypertension 6 hyperlipidemia 7 right-sided breast cancer postmastectomy 2015 8 non-anion gap metabolic acidosis, serum bicarbonate of 18 Plan Continue IV fluids at KVO Echocardiogram was noted and the patient has cardiomyopathy The catheterization was noted and the patient has nonocclusive disease Metoprolol 25 mg by mouth twice a day Continue Lipitor Continue Eliquis 2.5 mg by mouth twice a day Continue metoprolol 25 mg by mouth twice a day continue Cozaar 12.5 mg by mouth daily Continue the prednisone burst taper dose of 10 mg for another 4 days and then discontinue Heparin subcu for DVT prophylaxis NovoLog sliding scale coverage for blood sugar control We'll continue to follow
[2020-09-30 11:53] LABS: Glucose,Whole Blood 145 mg/dL (75-99)
[2020-09-30 11:55] VITALS: BP 116/67; PULSE 77; RESP 16; TEMP 97.3
--- NOTE | 2020-09-30 12:05 | P.DS ---
Providers Date of admission: 09/28/20 13:54 Attending physician: Sandip Knott Consults: 09/28/20 14:47 Consult Physician Routine Consulting Provider: Miguel Ángel Pompa Consult Reason/Comments: ICU MANAGEMENT Do you want consulting provider notified?: Yes 09/28/20 15:05 Consult Physician Routine Consulting Provider: Miguel Ángel Pompa Consult Reason/Comments: ICU MANAGEMENT Do you want consulting provider notified?: Already Contacted 09/29/20 07:37 Consult Physician Routine Consulting Provider: Yancy Austin Consult Reason/Comments: STEMI Do you want consulting provider notified?: Already Contacted Primary care physician: [facility] Course: Patient given with comments of dizziness, patient is found to have ST elevations in V1 and V2 and lead 1. Patient was taken to [facility] and in [facility] patient ended up having an episode of atrial fibrillation and patient was cardioverted. Patient is subsequently underwent cardiac catheterization did show coronary artery disease but not significant enough to do any stenting but patient is found to have decreased ejection fraction of 30-35% with apical ballooning. Patient is diagnosed with takutsubo syndrome. Patient is presently on a medically stable when I valid the patient patient is not on oxygen but appears to be requiring oxygen at this time allotted a chest x-ray because of that. Patient the was an amiodarone drip which was discontinued and was started on metoprolol heparin was discontinued and patient was started on metoprolol. Patient is also is started on low-dose of losartan will monitor basic metabolic profile and kidney function. 09/30/2020 Patient is clinically doing well euvolemic at this time except for mild expiratory wheezing on exam patient is already on steroids which will taper patient will be discharged on medications for heart failure patient is cleared by pulmonology and cardiology. PHYSICAL EXAMINATION: GENERAL: The patient is alert and oriented x3, not in any acute distress. Well developed, well nourished. HEENT: Pupils are round and equally reacting to light. EOMI. No scleral icterus. No conjunctival pallor. Normocephalic, atraumatic. No pharyngeal erythema. No thyromegaly. CARDIOVASCULAR: S1 and S2 present. No murmurs, rubs, or gallops. PULMONARY: Mild expiratory wheezing on exam ABDOMEN: Soft, nontender, nondistended, normoactive bowel sounds. No palpable or ganomegaly. MUSCULOSKELETAL: No joint swelling or deformity. EXTREMITIES: No cyanosis, clubbing, or pedal edema. NEUROLOGICAL: Gross neurological examination did not reveal any focal deficits. SKIN: No rashes. Assessment and Plan Plan: -Takotsubo syndrome/ stress-induced cardiomyopathy leading to ST elevation. Patient doesn't appear to have myocardial infarction patient only had minimally elevated troponins. Patient was initially thought to have non-ST elevation TN. Patient is presently on losartan. Not on any diuretics patient had decreased EF with systolic dysfunction which is acute EF of around 30-35% patient is presently not in heart failure exacerbation. Patient will be discharged today. -New onset atrial fibrillation: Paroxysmal continue with metoprolol and Eliquis -Coronary artery disease -COPD with mild acute exacerbation -Mild acute renal failure secondary to heart failure -Type 2 diabetes mellitus: - hyperlipidemia - hypertension -Patient had history of breast surgery in the past possibility of breast cancer as patient is on anastrozole . Plan - Discharge Summary New Discharge Prescriptions: New Apixaban [Eliquis] 2.5 mg PO BID 30 Days #60 tablet Metoprolol Tartrate [Lopressor] 25 mg PO BID 30 Days #60 tab Atorvastatin [Lipitor] 40 mg PO DAILY 30 Days #30 tab Losartan [Cozaar] 12.5 mg PO HS 30 Days #30 tab predniSONE 10 mg PO DAILY 3 Days #3 tab Discontinued Atorvastatin [Lipitor] 10 mg PO DAILY Losartan Potassium [Cozaar] 25 mg PO DAILY hydroCHLOROthiazide [Hydrodiuril] 12.5 mg PO DAILY No Action metFORMIN HCL [Glucophage] 500 mg PO BID Ipratropium-Albuterol Nebulize [Duoneb 0.5 mg-3 mg/3 ml Soln] 3 ml INHALATION RT-QID #120 ml predniSONE See Taper PO DAILY Anastrozole 1 mg PO DAILY Levofloxacin [Levaquin] 750 mg PO DAILY 1 Days #3 tab guaiFENesin [Mucinex] 600 mg PO QID #20 tablet.er Discharge Medication List metFORMIN HCL [Glucophage] 500 mg PO BID 11/24/17 [History] Anastrozole 1 mg PO DAILY 09/24/20 [History] Ipratropium-Albuterol Nebulize [Duoneb 0.5 mg-3 mg/3 ml Soln] 3 ml INHALATION RT-QID #120 ml 09/26/20 [Rx] Levofloxacin [Levaquin] 750 mg PO DAILY 1 Days #3 tab 09/26/20 [Rx] guaiFENesin [Mucinex] 600 mg PO QID #20 tablet.er 09/26/20 [Rx] predniSONE See Taper PO DAILY 09/28/20 [History] Apixaban [Eliquis] 2.5 mg PO BID 30 Days #60 tablet 09/30/20 [Rx] Atorvastatin [Lipitor] 40 mg PO DAILY 30 Days #30 tab 09/30/20 [Rx] Losartan [Cozaar] 12.5 mg PO HS 30 Days #30 tab 09/30/20 [Rx] Metoprolol Tartrate [Lopressor] 25 mg PO BID 30 Days #60 tab 09/30/20 [Rx] predniSONE 10 mg PO DAILY 3 Days #3 tab 09/30/20 [Rx] Follow up Appointment(s)/Referral(s): Yancy Austin MD [STAFF PHYSICIAN] - 1 Week Aging,[place] [NON-STAFF] - As Needed Marvin Parikh DO [Primary Care Provider] - 3 Days Miguel Ángel Pompa MD [STAFF PHYSICIAN] - 1 Week Discharge Disposition: HOME WITH HOME HEALTH SERVICES
--- NOTE | 2020-09-30 12:34 | P.PN ---
Subjective This is a 89-year-old female who was admitted here for exacerbation of COPD. EKG revealed significant precordial ST ST changes suspicious for ischemia involving the anterior wall. Patient underwent cardiac catheterization on 09/28/[address] Austin which revealed noncritical disease upon the LAD, diagonal and help PLV branch of the RCA. RCA branch disease is significant at the ostium 70% LAD and the diagonal has multiple distal diffuse areas of narrowing anywhere from 35% to 45%. Normal filling pressures and no gradient. Patient also went into atrial flutter with a rapid rate, developed hypotension requiring Levophed. She was shocked in the Systems Development Consultant and in sinus rhythm. Recommended to continue medical therapy and perform an echocardiogram which revealed left ventricular systolic function is moderately to severely impaired with EF 30-35%, anteroapical focal hypokinesis possible Takotsubo. Patient was started on Eliquis 2.5 twice a day, atorvastatin 40 mg daily, losartan 12.5 mg nightly, metoprolol titrate 25 mg twice a day. Patient seen and examined at bedside, no acute distress, vital signs are stable. Labs reviewed sodium 141, potassium 4.2, serum creatinine 0.96, BUN/creatinine 23. Right groin cath site, clean dry open to air no hematoma. Patient denies any chest pain, shortness of breath, palpitations. GENERAL: Well-appearing, well-nourished and in no acute distress. NECK: Supple without JVD or thyromegaly. LUNGS: Breath sounds clear to auscultation bilaterally. Respiration equal and unlabored. No wheezes, rales or rhonchi. HEART: Regular rate and rhythm systolic murmur noted. S1 and S2 heard. EXTREMITIES: Normal range of motion, no edema. No clubbing or cyanosis. Peripheral pulses intact. ASSESSMENT Acute ischemic syndrome involving the anterior wall with EKG changes Paroxysmal atrial flutter on Eliquis Hypertension Hyperlipidemia Type 2 diabetes COPD PLAN From cardiology perspective patient is stable to be discharged home Patient to be discharged with Eliquis 2.5 mg twice a day, metoprolol titrate 25 mg twice a day, atorvastatin 40 mg daily, losartan 12.5 mg nightly Patient to follow-up in the office with Dr. Austin within one week Nurse Practitioner note has been reviewed, I agree with a documented findings and plan of care. Patient was seen and examined. Objective - Vital Signs Vital signs: Vital Signs Temp 97.3 F L 09/30/20 11:53 Pulse 77 09/30/20 11:53 Resp 16 09/30/20 11:53 BP 116/67 09/30/20 11:53 Pulse Ox 95 09/30/20 11:53 Intake & Output 09/29/20 09/30/20 09/30/20 18:59 06:59 18:59 Intake Total 532 480 Output Total 400 0 Balance 132 0 480 Weight 67.9 kg Intake: IV 92 Amiodarone 450 mg In 17 Dextrose 5% in Water 250 ml @ 0.5 MG/MIN 16.667 mls/hr IV .Q15H ALICE Rx#: [id number] Sodium Chloride 0.9% 1, 75 000 ml @ 75 mls/hr IV . [id number] ALICE Rx#:[id number] Oral 440 480 Output: Urine 400 0 Other: Voiding Method Bedside Commode Bedside Commode # Voids 1 2 - Labs CBC & Chem 7: 09/29/20 03:19 09/30/20 07:18 Labs: Abnormal Lab Results - Last 24 Hours (Table) 09/29/20 09/29/20 09/30/20 Range/Units 16:41 20:17 06:23 Chloride (98-107) mmol/L BUN (7-17) mg/dL Glucose (74-99) mg/dL POC Glucose (mg/dL) 197 H 126 H 121 H (75-99) mg/dL 09/30/20 09/30/20 Range/Units 07:18 11:48 Chloride 109 H (98-107) mmol/L BUN 23 H (7-17) mg/dL Glucose 120 H (74-99) mg/dL POC Glucose (mg/dL) 145 H (75-99) mg/dL
[2020-10-01] MEDS ORDERED: ATORVASTATIN 40 MG TAB PO SCH (09:00)
[2020-10-01] MEDS ORDERED: predniSONE 10 MG TAB PO SCH (09:00)
--- NOTE | 2020-10-20 08:18 | CDI ---
Documentation Clarification Form Date: 10/20/2020 07:55:00 AM From: Deborah Butler Phone: If you have a question about this query, please contact Adalgisa Betts, Beef Cattle Farm Manager at [phone] between 8am and 5pm. Admit Date: 09/28/2020 01:54:00 PM Patient Name: Beverley Ruiz Visit Number: [id number] Discharge Date: 09/30/2020 02:22:00 PM ATTENTION: The Clinical Documentation Specialists (CDI) and [facility] Coding Staff appreciate your assistance in clarifying documentation. Please respond to the clarification below the line at the bottom and electronically sign. The CDI & [facility] Coding staff will review the response and follow-up if needed. Please note: Queries are made part of the Legal Health Record. If you have any questions, please contact the author of this message via ITS. Dr. Sandip Knott Per DCS patient has mild acute renal failure second to heart failure. Please clarify type and acuity of CHF. History/Risk Factors: Patient with Takutsubo syndrome, acute renal failure, CAD Clinical Indicators: elevated troponins VS/Pulse OX: 95 RA BNP: 7420 Echocardiogram Results: Left ventricular hypertrophy EF 30-35% Chest X Ray: COPD suspected In your professional opinion, can you please clarify the [acuity and type] of CHF if known? [ ] Acute Systolic Heart Failure (reduced EF) [ ] Chronic Systolic Heart Failure (reduced EF) [ ] Acute on Chronic Systolic Heart Failure (reduced EF) [ ] Acute Diastolic Heart Failure (preserved EF) [ ] Chronic Diastolic Heart Failure (preserved EF) [ ] Acute on Chronic Diastolic Heart Failure (preserved EF) [ ] Acute Systolic & Diastolic Heart Failure [ ] Chronic Systolic & Diastolic Heart Failure [ ] Acute on Chronic Heart Failure Systolic & Diastolic Heart Failure [ ] Other, please specify [ ] Unable to determine Acute on Chronic Systolic Heart Failure (reduced EF) MTDD
== END 2020-09-30 14:22 | disposition home health service (06) | DRG 286 ==
LOC: EC 13:13 → 2SICU 13:54 → 3SCARD 09-29 13:40
PROVIDERS: ADMIT Internal Medicine; ATTEND Internal Medicine
PROC: B2111ZZ Fluoroscopy of Multiple Coronary Arteries using Low Osmolar Contrast (ICD-10-PCS; principal; 2020-09-29)
PROC: 4A023N7 Measurement of Cardiac Sampling and Pressure, Left Heart, Percutaneous Approach (ICD-10-PCS; principal; 2020-09-29)
PROC: 5A2204Z Restoration of Cardiac Rhythm, Single (ICD-10-PCS; principal; 2020-09-29)
DX: I51.81 Takotsubo syndrome (principal); I50.23 Acute on chronic systolic (congestive) heart failure; I48.92 Unspecified atrial flutter; J44.1 Chronic obstructive pulmonary disease with (acute) exacerbation; N17.9 Acute kidney failure, unspecified; E87.2 Acidosis; E11.9 Type 2 diabetes mellitus without complications; E78.00 Pure hypercholesterolemia, unspecified; E78.5 Hyperlipidemia, unspecified; F41.9 Anxiety disorder, unspecified; I25.10 Atherosclerotic heart disease of native coronary artery without angina pectoris; I48.0 Paroxysmal atrial fibrillation; Z79.01 Long term (current) use of anticoagulants; Z79.811 Long term (current) use of aromatase inhibitors; Z79.84 Long term (current) use of oral hypoglycemic drugs; Z79.899 Other long term (current) drug therapy; Z85.3 Personal history of malignant neoplasm of breast; Z87.891 Personal history of nicotine dependence; Z90.11 Acquired absence of right breast and nipple
CPT/HCPCS: 36415; 71045; 71046; 80048; 80053; 83036; 83605; 83735; 83880; 84484; 85025; 85379; 85610; 85730; 87040; 90935; 93005; 93308; 93458; 94640; 96365; 96366; 96375; 96376; 99285

== ENCOUNTER → 2020-09-28 | Outpatient (CLI) | payer MEDICARE | END | disposition home or self-care (01) | LOC: LABWHC1 07:40 | PROVIDERS: ATTEND Otolaryngology | DX: Z53.9 Procedure and treatment not carried out, unspecified reason (principal) | CPT/HCPCS: 36415 ==

== ENCOUNTER → 2020-12-23 | Outpatient (CLI) | payer MEDICARE ==
--- NOTE | 2020-12-23 12:37 | CT ---
EXAMINATION TYPE: CT brain w con DATE OF EXAM: 12/23/2020 COMPARISON: 08/22/2019 HISTORY: Breast cancer. Dizziness. CT DLP: 990.8 mGycm Automated exposure control for dose reduction was used. CONTRAST: CT scan of the head is performed with IV Contrast, patient injected with 80 mL of Isovue M300. FINDINGS: There is no abnormal enhancing mass or midline shift identified. The ventricles basal cisterns and cheek lci overlying the frontal convexities demonstrate mild to moderate enlargement not unusual for this p atient's age group. Periventricular decreased attenuation is compatible with chronic small vessel isc hemic change. The globes are intact and the visualized sinuses are clear. IMPRESSION: No evidence for enhancing intracranial lesion.
== END | disposition home or self-care (01) ==
LOC: RADCTMAIN 10:57
PROVIDERS: ATTEND Internal Medicine Hematology & Oncology
DX: Z03.89 Encounter for observation for other suspected diseases and conditions ruled out (principal); C50.411 Malignant neoplasm of upper-outer quadrant of right female breast; R42 Dizziness and giddiness
CPT/HCPCS: 82565; 84520; 70460; 36415; Q9967

== ENCOUNTER → 2021-04-02 | Outpatient (CLI) | payer MEDICARE ==
--- NOTE | 2021-04-02 15:14 | BD ---
EXAMINATION TYPE: Axial Bone Density DATE OF EXAM: 04/02/2021 COMPARISON: 04.30.2018 CLINICAL HISTORY: 89 YR OLD FEMALE....ICD-10 CODE: M85.88 DISORDER OF BD Height: 62 Weight: 155 FRAX RISK QUESTIONS: Family History (Parent hip fracture): YES Glucocorticoids (More than 3mos): YES (Ex: prednisone, prednisolone, methylprednisolone, dexamethasone, and hydrocortisone). History of Fracture in Adulthood: YES RISK FACTORS HISTORY OF: RT SHOULDER FX AT 82 YRS OLD, ELBOW, AND WRIST RT, OVER AGE 82 AND LUMBAR FXS 2019, AND RIB FXS Spine Fracture: NOT SURE, MAYBE 1985 History of Wrist Fracture: RT IN HER 80s....POSSIBLY LT CHILD, UNSURE Surgery to Spine 1985 AND RECENT FX OF LUMBAR 2019 Family History of Osteoporosis: YES Postmenopausal woman: YES, AT 52 Lost more than 2 inches in height since high school: YES Frequent falls: ELDERLY, UNSTEADY Hyperparathyroidism: NO Adrenal Insufficiency: NO MEDICATIONS: Prednisone or other steroids: YES, ON AND OFF FOR PAIN AND HEART, 2020 Osteoporosis Medications: IN THE PAST BUT NONE NOW Additional Medications: BP MEDS, VIT D, , ARMIDEX, METFORMIN, STATIN FOR CHOLESTEROL, NSAIDS, ASTHMA TREATMENTS SYMBACORT, PAIN MEDS Additional History: HX OF BREAST CANCER, HYPERTENSION, HX OF STROKE SEPTEMBER 2020, DIABETIC, ASTHMA, VANDANA STEROL, ARTHRITIS, KNEE PAIN, EXAM MEASUREMENTS: Bone mineral densitometry was performed using the [employer]lite System. HX OF FX SPINE 2019 Bone mineral density about the R hip (g/cm2): 0.685 Bone mineral density about the L hip (g/cm2): 0.777 T Score values are as follows: -----R Neck: -1.8 -----L Neck: -2.1 -----R Total: -2.6 -----L Total: -1.8 Bone mineral density has: Decreased -12.1% since study of: 04.30.2018 FRAX%s: THERE IS A 48.0% CHANCE FOR A MAJOR OSTEOPOROTIC FX AND A 35.2% FOR HIP.....PROBABILITY FO R FX IN 10 YRS TIME Bone mineral density about the L Wrist (g/cm2): 0.363 T Score values are as follows: -----Dist. R+U: -2.5 -----Prox. R+U: -4.9 -----Radius total: -4.9 Bone mineral density FIRST SCAN OF FOREARM.... IMPRESSION: Osteoporosis (T Score less than -2.5). There is increased fracture risk and therapy is usually indicated based on age. Re-Screen 1-2 years. NOTE: T-SCORE=SD OF THE YOUNG ADULT MEAN.
== END | disposition home or self-care (01) ==
LOC: RADBDWWP 08:36
PROVIDERS: ATTEND Family Medicine
DX: M81.0 Age-related osteoporosis without current pathological fracture (principal); M85.80 Other specified disorders of bone density and structure, unspecified site
CPT/HCPCS: 77080

== ENCOUNTER → 2021-08-26 | Outpatient (CLI) | payer MEDICARE ==
--- NOTE | 2021-08-26 11:55 | MM ---
Reason for exam: additional evaluation requested from prior study. Last mammogram was performed 1 year and 1 month ago. History: Patient is postmenopausal, has history of breast cancer at age 84, and is nulliparous. Benign MG stereo VAD BX LT of the left breast, December 22, 2017. Mastectomy of the right breast, December 18, 2015. Took antineoplastic beginning at age 84. Taking other hormone. Physical Findings: A clinical breast exam by your physician is recommended on an annual basis and results should be correlated with mammographic findings. MG 3D Diag Mammo W/Cad LT CC and MLO view(s) were taken of the left breast. Prior study comparison: July 31, 2020, left breast MG 3d diag mammo w/cad LT. June 03, 2019, left breast MG 3d diag mammo w/cad LT. The breast tissue is heterogeneously dense. This may lower the sensitivity of mammography. Previous mammotome biopsy in the left breast. Stable scattered calcifications. No significant changes when compared with prior studies. ASSESSMENT: Benign, BI-RAD 2 RECOMMENDATION: Routine screening mammogram of the left breast in 1 year.
== END | disposition home or self-care (01) ==
LOC: RADMAMWWP 11:07
PROVIDERS: ATTEND Internal Medicine Hematology & Oncology
DX: C50.411 Malignant neoplasm of upper-outer quadrant of right female breast (principal)
CPT/HCPCS: 77065; G0279; 77061

== ENCOUNTER → 2022-08-29 | Outpatient (CLI) | payer MEDICARE ==
--- NOTE | 2022-08-29 12:50 | MM ---
Reason for Exam: Additional evaluation requested from prior study. Last mammogram was performed 1 year(s) and 1 month(s) ago. Patient History: Menarche at age 13. Patient has no children. Postmenopausal. Breast cancer, right, age 84. 12/18/2015, Mastectomy on the Right side. 12/22/2017, Benign Core Biopsy on the left side. Prior Study Comparison: 11/18/2016 Left Diagnostic Mammogram, [facility]. 11/20/2017 Left Diagnostic Mammogram, [facility]. 05/31/2018 Left Diagnostic Mammogram, [facility]. 06/03/2019 Left Diagnostic Mammogram, [facility]. 07/31/2020 Left Diagnostic Mammogram, [facility]. 08/26/2021 Left Diagnostic Mammogram, [facility]. Tissue Density: Left: The breast tissue is heterogeneously dense. This may lower the sensitivity of mammography. Findings: Analyzed By CAD. Pattern appears stable. Stable benign-appearing calcifications are present in the left breast. No significant interval change is evident. No suspicious groups of microcalcifications, spiculated or lobular masses, architectural distortion or other secondary signs of malignancy are mammographically apparent. Overall Assessment: Benign, BI-RAD 2 Management: Screening Mammogram of the left breast in 1 year. A negative mammogram report should not preclude additional follow up of suspicious palpable abnormalities. Patient should continue monthly self breast exam. A clinical breast exam by your physician is recommended on an annual basis and results should be correlated with mammographic findings. Electronically signed and approved by: Antoine Chandler D.O. Radiologis
== END | disposition home or self-care (01) ==
LOC: RADMAMWWP 10:37
PROVIDERS: ATTEND Internal Medicine Hematology & Oncology
DX: R92.1 Mammographic calcification found on diagnostic imaging of breast (principal); Z85.3 Personal history of malignant neoplasm of breast; Z78.0 Asymptomatic menopausal state; Z90.11 Acquired absence of right breast and nipple; Z98.890 Other specified postprocedural states
CPT/HCPCS: 77065; G0279; 77061